=== PATIENT | male | born 1960 | race Caucasian/White ===

== ENCOUNTER 2018-06-28 17:18 | Inpatient (IN) | payer MEDICAID ==
[~2018-06-28] VITALS: Ht 172.7 cm; Wt 80.5 kg
[2018-06-28] MEDS ORDERED: NKM (17:31)
--- NOTE | 2018-06-28 17:32 | NUR ---
ED Nurse Note: Pt came into the ER w/ complaints of left index finger infection x 10 days. Redness and swelling noted at the site. Complaining of 9/10 pain. Non radiating. A + O x4. Ambulatory. Skin warm to touch.
[2018-06-28 17:33] VITALS: BP 125/87
--- NOTE | 2018-06-28 17:36 | NUR ---
ED Nurse Note: Friend's name Jonathan
[2018-06-28] MEDS ORDERED: Vancomycin 1.5gm Premix 275 ML IVPB ONE (17:45)
--- NOTE | 2018-06-28 17:55 | Emergency Room Report ---
History of Present Illness General Chief Complaint: Skin Rash/Abscess Source: Patient (Jones Hendrickson) Present Illness HPI 58-year-old male patient presents the ER complaining of infection of the left finger for the past 10 days. Denies acute injury or accident "that he can remember". Denies fever, reports some nausea, denies vomiting. Denies history of diabetes. Reports may have had chemical exposure on finger however "does not remember". States he is homeless, presented to ER with "an old friend". Denies chest pain or shortness of breath. Reports she is right-hand dominant. States has not followed up with another provider clinic or hospital for treatment and evaluation. (Jones Hendrickson) Allergies: Coded Allergies: No Known Allergies (Unverified , 06/28/18) Patient History Past Medical History: see triage record Reviewed Nursing Documentation: PMH: Agreed; PSxH: Agreed (Jones Hendrickson) Nursing Documentation-PMH Past Medical History: No Stated History (Jones Hendrickson) Review of Systems All Other Systems: negative except mentioned in HPI (Jones Hendrickson) Physical Exam Vital Signs Date Time Temp Pulse Resp B/P (MAP) Pulse Ox O2 Delivery O2 Flow Rate FiO2 06/28/18 17:26 98.4 90 17 127/87 98 Room Air Sp02 EP Interpretation: reviewed, normal General Appearance: well appearing, no apparent distress, alert, GCS 15, non- toxic Head: normocephalic, atraumatic Eyes: bilateral eye normal inspection, bilateral eye PERRL ENT: hearing grossly normal, normal pharynx, no angioedema, normal voice, uvula midline, moist mucus membranes Neck: full range of motion Respiratory: lungs clear, normal breath sounds, no rhonchi, no respiratory distress, no accessory muscle use, no wheezing, speaking full sentences Cardiovascular #1: regular rate, rhythm, no edema Cardiovascular #2: 2+ radial (R), 2+ radial (L) Musculoskeletal: back normal, digits/nails normal, gait/station normal, normal range of motion, swelling, other - cap refill <2seconds, erythema and edema, held in flexion, pus noted, skin peeling, fusiform swelling, tender Neurologic: alert, oriented x3, responsive, motor strength/tone normal, sensory intact Psychiatric: mood/affect normal Skin: no rash (Jones Hendrickson) Medical Decision Making PA Attestation Dr. Hernandez is my supervising Physician whom patient management has been discussed with. (Jones Hendrickson) Medicare Attestation The history of Bhupinder Rothman has been reviewed and management options for him have been examined and discussed by Nela Hernandez. I have personally examined and interviewed the patient. (Nela Hernandez DO) Diagnostic Impression: Primary Impression: Cellulitis of finger of left hand ER Course Pt. presents to the ED c/o left finger infection. Ddx considered but are not limited to rash, cellulitis, abscess, gangrene, flexor tenosynovitis, necrotizing fasciitis Vital signs: are WNL, pt. is afebrile ER COURSE: Provided patient with pain medication and IV abx. CBC shows mildly elevated WBC CMP unremarkable X-ray shows no acute fracture, mild edema, no subcutaneous gas per the preliminary reading. Patient seen and evaluated by Dr. Hernandez, agrees with assessment and treatment plan. Patient be admitted to Dr. Sousa. Discussed patient care with Dr. Roa, general surgeon, who was kind enough to agree to consult on this case. Patient to be admitted for finger cellulitis. ER precautions given. Patient instructed to return to ER immediately for any new or worsening of symptoms including but not limited to increasing SOB, persistent fever, intractable vomiting, calf pain. (Jones Hendrickson) Other X-Ray Diagnostic Results Other X-Ray Diagnostic Results : X-Ray ordered: left hand # of Views/Limited Vs Complete: 3 View Indication: Pain EP Interpretation: Yes PA Xray: Interpretation reviewed, by supervising MD, and agrees with findings. Interpretation: no dislocation, no fractures, other - Soft tissue swelling, no subcutaneous gas Impression: No acute disease PA Scribe Text Davian NOYOLA-C (Jones Hendrickson) Last Vital Signs Date Time Temp Pulse Resp B/P (MAP) Pulse Ox O2 Delivery O2 Flow Rate FiO2 06/28/18 17:33 98.3 66 20 125/87 97 Room Air (Jones Hendrickson) Disposition: ADMITTED INPATIENT Condition: Serious Jones Hendrickson Jun 28, 2018 17:55 Nela Hernandez DO Jun 28, 2018 19:12
[2018-06-28] MEDS ORDERED: Ketorolac 30mg Inj IM ONE (18:00)
[2018-06-28] MEDS ORDERED: cefTRIAXone 1 GM in NS 55 ML IVPB ONE (18:00)
--- NOTE | 2018-06-28 18:05 | NUR ---
ED Nurse Note: Xray at the bedside.
[2018-06-28 18:06] LABS: BASOPHILS % (AUTO) 1.6 % (0.0-2.0); EOSINOPHILS % (AUTO) 2.3 % (0.0-3.0); HEMATOCRIT 45.5 % (42.0-52.0); HEMOGLOBIN 16.2 G/DL (14.2-18.0); LYMPHOCYTES % (AUTO) 32.6 % (20.0-45.0); MEAN CORPUSCULAR VOLUME 91 FL (80-99); MONOCYTES % (AUTO) 6.6 % (1.0-10.0); PLATELET COUNT 535 K/UL (150-450); RED BLOOD COUNT 5.02 M/UL (4.70-6.10); RED CELL DISTRIBUTION WIDTH 11.1 % (11.6-14.8); WHITE BLOOD COUNT 12.2 K/UL (4.8-10.8)
[2018-06-28 18:12] LABS: ANION GAP 7 mmol/L (5-15); BLOOD UREA NITROGEN 18 mg/dL (7-18); CALCIUM 8.9 MG/DL (8.5-10.1); CARBON DIOXIDE 30 MMOL/L (21-32); CHLORIDE 105 MMOL/L (98-107); POTASSIUM 4.6 MMOL/L (3.5-5.1); SODIUM 142 MMOL/L (136-145)
[2018-06-28 18:17] LABS: ALANINE AMINOTRANSFERASE 28 U/L (12-78); ALBUMIN 3.2 G/DL (3.4-5.0); ALBUMIN/GLOBULIN RATIO 0.8 (1.0-2.7); ALKALINE PHOSPHATASE 126 U/L (46-116); ASPARTATE AMINO TRANSFERASE 34 U/L (15-37); BILIRUBIN,TOTAL 0.4 MG/DL (0.2-1.0)
[2018-06-28] MEDS ORDERED: VANCOMYCIN 1.5 GM IVPB ONE (18:31)
--- NOTE | 2018-06-28 18:51 | Diagnostic Imaging Report ---
EXAM: XR Left Hand Complete, 3 or More Views CLINICAL HISTORY: PAIN TECHNIQUE: Frontal, lateral and oblique views of the left hand. COMPARISON: No relevant prior studies available. FINDINGS: Bones/joints: Unremarkable. No acute fracture. No dislocation. Soft tissues: Unremarkable. No radiopaque foreign body. IMPRESSION: Normal left hand x-rays.
--- NOTE | 2018-06-28 19:13 | NUR ---
HAND-OFF: Report given to DOMINIC Diaz.
--- NOTE | 2018-06-28 19:14 | NUR ---
ED Nurse Note: Received report from Femi/DOMINIC. c/o left hand/finger was infected. Waiting for bed to transfer.
[2018-06-28 20:00] VITALS: BP 125/76
--- NOTE | 2018-06-28 20:30 | NUR ---
ED Nurse Note: Provided water, orange juice and sandwitch, Pt feels stable at this time. continue to monitor.
--- NOTE | 2018-06-28 21:41 | NUR ---
NURSE NOTES: Received telephone report from DOMINIC Diaz. Awaiting patient from ED.
--- NOTE | 2018-06-28 21:52 | NUR ---
TRANSFER TO FLOOR: Patient transferred to /S 419 as ordered . Report given to Bridge/RN. Belongings sent with Pt and rechecked with RN. PT is A/O X4. VSS.
--- NOTE | 2018-06-28 22:00 | NUR ---
NURSE NOTES: Received patient from ED with belongings. Belongings checked and verified. Patient A&Ox4, on room air. IV intact, patent, and saline locked. Bed in lowest position with call light in reach. Will continue to monitor and contact MD for orders.
[2018-06-28] MEDS ORDERED: Albuterol/Ipratropium 3ml neb HHN PRN (23:00)
[2018-06-28] MEDS ORDERED: Morphine Sulfate 2mg/ml Inj(IV/IM USE ONLY) IVP PRN (23:00)
[2018-06-28] MEDS ORDERED: Nitroglycerin Subl 0.4mg tab SL PRN (23:00)
[2018-06-28] MEDS ORDERED: Miralax 17gm pkt ORAL PRN (23:00)
[2018-06-29] VITALS: BP 125/76
[2018-06-29] MEDS ORDERED: Vancomycin 1 GM in D5W 275 ML IV SCH (00:30)
[2018-06-29 04:00] VITALS: BP 131/64
[2018-06-29] MEDS: Vancomycin 1.5gm Premix 275 ML IVPB SCH ×2 (05:32→18:18)
[2018-06-29 06:01] LABS: BASOPHILS % (AUTO) 1.1 % (0.0-2.0); EOSINOPHILS % (AUTO) 2.2 % (0.0-3.0); HEMATOCRIT 41.3 % (42.0-52.0); HEMOGLOBIN 14.7 G/DL (14.2-18.0); LYMPHOCYTES % (AUTO) 31.4 % (20.0-45.0); MEAN CORPUSCULAR VOLUME 91 FL (80-99); MONOCYTES % (AUTO) 6.8 % (1.0-10.0); NEUTROPHILS % (AUTO) 58.6 % (45.0-75.0); PLATELET COUNT 460 K/UL (150-450); RED BLOOD COUNT 4.56 M/UL (4.70-6.10); RED CELL DISTRIBUTION WIDTH 11.3 % (11.6-14.8); WHITE BLOOD COUNT 10.7 K/UL (4.8-10.8)
[2018-06-29 06:36] LABS: ALANINE AMINOTRANSFERASE 23 U/L (12-78); ALBUMIN 2.8 G/DL (3.4-5.0); ALBUMIN/GLOBULIN RATIO 0.8 (1.0-2.7); ALKALINE PHOSPHATASE 101 U/L (46-116); ANION GAP 5 mmol/L (5-15); ASPARTATE AMINO TRANSFERASE 11 U/L (15-37); BILIRUBIN,TOTAL 0.2 MG/DL (0.2-1.0); BLOOD UREA NITROGEN 17 mg/dL (7-18); CALCIUM 8.7 MG/DL (8.5-10.1); CARBON DIOXIDE 29 MMOL/L (21-32); CHLORIDE 107 MMOL/L (98-107); CREATININE 1.1 MG/DL (0.55-1.30); POTASSIUM 4.4 MMOL/L (3.5-5.1); SODIUM 141 MMOL/L (136-145)
--- NOTE | 2018-06-29 07:44 | NUR ---
HAND-OFF: Report given to Lucinda Weston RN.
--- NOTE | 2018-06-29 07:45 | NUR ---
NURSE NOTES: Received patient in bed, awake,alert and oriented x4. Not in respiratory/cardiac distress. Patient is in mild pain on his finger but does not want to take pain med @ this time.Patient will let nurse know. IV antibiotic infusing, no s/s of infiltration on IV site. Bed is in lowest position and locked. Call light within reach. Will continue plan of care.
[2018-06-29 08:00] VITALS: BP 129/77
[2018-06-29] MEDS: Cefepime HCl 2 GM in D5W 110 ML IV SCH ×2 (08:58→21:48)
[2018-06-29] MEDS: Heparin 5000 units/ml inj SUBQ SCH ×2 (08:59→21:00)
[2018-06-29 12:00] VITALS: BP 141/83
--- NOTE | 2018-06-29 14:02 | Consultation ---
History of Present Illness General Reason for Hospitalization: Skin Rash/Abscess Present Illness HPI 58M presented to ED c/o worsening left index finger pain for 10 days. Cannot recall any trauma or inciting event but states 10 days ago began to have pain and swelling in left index finger. since worsening. did not care for it and allowed it to worsen. skin began to blister and peel. draining serous fluid. came to ED now for evaluation. surgery called to evaluate and assist with care /management. patient seen, chart reviewed, patient examined. Allergies: Coded Allergies: No Known Allergies (Unverified , 06/28/18) Medication History Scheduled No Known Medications* (NKM - No Known Medications*), 0 ., (Reported) Patient History History Provided By: Patient, Medical Record, PMD Healthcare decision maker Resuscitation status Full Code Advanced Directive on File No Past Medical/Surgical History Past Medical/Surgical History: (1) Cellulitis of finger of left hand Review of Systems Review of Symptoms General ROS: no weight loss or fever Psychological ROS: no depression or mood changes, no memory loss Ophthalmic ROS: no visual changes or eye irritation ENT ROS: no nasal congestion, hearing loss, dizziness Allergy and Immunology ROS: no allergic symptoms or urticaria Hematological and Lymphatic ROS: no swollen glands, unusual bleeding or bruising Endocrine ROS: no polyuria, polydipsia, weight changes, temperature intolerance Respiratory ROS: no cough, shortness of breath, or wheezing Cardiovascular ROS: no chest pain or dyspnea on exertion Gastrointestinal ROS: denies abdominal pain, bright red blood in stool. Musculoskeletal ROS: no myalgias or arthralgias Neurological ROS: no TIA or stroke symptoms Dermatological ROS: no new or changing skin lesions, rashes or pruritis Physical Exam Physical Exam General appearance: alert, cooperative, no distress, appears stated age Head: Normocephalic, without obvious abnormality, atraumatic Eyes: conjunctivae/corneas clear. PERRL, EOM's intact. Fundi benign Throat: Lips, mucosa, and tongue normal. Teeth and gums normal Neck: supple, symmetrical, trachea midline, no adenopathy, thyroid: not enlarged, symmetric, no tenderness/mass/nodules, no carotid bruit and no JVD Lungs: clear to auscultation bilaterally Heart: regular rate and rhythm, S1, S2 normal, no murmur, click, rub or gallop Abdomen: soft, non-tender. Bowel sounds normal. No masses, no organomegaly Extremities: extremities normal, atraumatic, no cyanosis or edema. left index finger cellulitis. no abscess Pulses: 2+ and symmetric Skin: Skin color, texture, turgor normal. No rashes or lesions Neurologic: Grossly normal Last 24 Hour Vital Signs Date Time Temp Pulse Resp B/P (MAP) Pulse Ox O2 Delivery O2 Flow Rate FiO2 06/29/18 12:00 98.4 68 18 141/83 (102) 97 06/29/18 09:00 Room Air 06/29/18 08:00 97.9 80 17 129/77 (94) 97 06/29/18 04:00 98.8 74 17 131/64 (86) 97 06/29/18 00:00 98.5 81 17 125/76 (92) 96 06/28/18 22:41 Room Air 06/28/18 21:52 98.2 67 20 123/82 97 Room Air 06/28/18 20:00 98.4 81 18 125/76 (92) 96 06/28/18 18:46 98.3 06/28/18 17:33 98.3 66 20 125/87 97 Room Air 06/28/18 17:26 98.4 90 17 127/87 98 Room Air Intake and Output 06/28/18 06/29/18 18:59 06:59 Intake Total 1050 ml 950 ml Balance 1050 ml 950 ml Intake Oral 950 ml IV Total 1050 ml Laboratory Tests Test 06/28/18 17:50 06/29/18 04:40 White Blood Count 12.2 K/UL (4.8-10.8) H 10.7 K/UL (4.8-10.8) Red Blood Count 5.02 M/UL (4.70-6.10) 4.56 M/UL (4.70-6.10) L Hemoglobin 16.2 G/DL (14.2-18.0) 14.7 G/DL (14.2-18.0) Hematocrit 45.5 % (42.0-52.0) 41.3 % (42.0-52.0) L Mean Corpuscular Volume 91 FL (80-99) 91 FL (80-99) Mean Corpuscular Hemoglobin 32.2 PG (27.0-31.0) H 32.2 PG (27.0-31.0) H Mean Corpuscular Hemoglobin Concent 35.5 G/DL (32.0-36.0) 35.5 G/DL (32.0-36.0) Red Cell Distribution Width 11.1 % (11.6-14.8) L 11.3 % (11.6-14.8) L Platelet Count 535 K/UL (150-450) H 460 K/UL (150-450) H Mean Platelet Volume 5.1 FL (6.5-10.1) L 5.4 FL (6.5-10.1) L Neutrophils (%) (Auto) 57.0 % (45.0-75.0) 58.6 % (45.0-75.0) Lymphocytes (%) (Auto) 32.6 % (20.0-45.0) 31.4 % (20.0-45.0) Monocytes (%) (Auto) 6.6 % (1.0-10.0) 6.8 % (1.0-10.0) Eosinophils (%) (Auto) 2.3 % (0.0-3.0) 2.2 % (0.0-3.0) Basophils (%) (Auto) 1.6 % (0.0-2.0) 1.1 % (0.0-2.0) Sodium Level 142 MMOL/L (136-145) 141 MMOL/L (136-145) Potassium Level 4.6 MMOL/L (3.5-5.1) 4.4 MMOL/L (3.5-5.1) Chloride Level 105 MMOL/L (98-107) 107 MMOL/L (98-107) Carbon Dioxide Level 30 MMOL/L (21-32) 29 MMOL/L (21-32) Anion Gap 7 mmol/L (5-15) 5 mmol/L (5-15) Blood Urea Nitrogen 18 mg/dL (7-18) 17 mg/dL (7-18) Creatinine 1.0 MG/DL (0.55-1.30) 1.1 MG/DL (0.55-1.30) Estimat Glomerular Filtration Rate > 60 mL/min (>60) > 60 mL/min (>60) Glucose Level 92 MG/DL (74-106) 96 MG/DL (74-106) Calcium Level 8.9 MG/DL (8.5-10.1) 8.7 MG/DL (8.5-10.1) Total Bilirubin 0.4 MG/DL (0.2-1.0) 0.2 MG/DL (0.2-1.0) Aspartate Amino Transf (AST/SGOT) 34 U/L (15-37) 11 U/L (15-37) L Alanine Aminotransferase (ALT/SGPT) 28 U/L (12-78) 23 U/L (12-78) Alkaline Phosphatase 126 U/L (46-116) H 101 U/L (46-116) Total Protein 7.3 G/DL (6.4-8.2) 6.4 G/DL (6.4-8.2) Albumin 3.2 G/DL (3.4-5.0) L 2.8 G/DL (3.4-5.0) L Globulin 4.1 g/dL 3.6 g/dL Albumin/Globulin Ratio 0.8 (1.0-2.7) L 0.8 (1.0-2.7) L Height (Feet): 5 Height (Inches): 8.00 Weight (Pounds): 160 Medications Current Medications Medications (Trade) Dose Ordered Sig/Eliza Route PRN Reason Start Time Stop Time Status Last Admin Dose Admin Acetaminophen (Tylenol) 650 mg Q4H PRN ORAL fever 06/28/18 23:00 07/28/18 22:59 Albuterol/ Ipratropium (Albuterol/ Ipratropium) 3 ml EVERY 4 HOURS PRN HHN Shortness of Breath 06/28/18 23:00 07/03/18 22:59 Cefepime HCl 2 gm/ Dextrose 110 ml @ 220 mls/hr EVERY 12 HOURS IV 06/29/18 09:00 07/06/18 08:59 06/29/18 08:58 Clindamycin HCl/ Dextrose 50 ml @ 100 mls/hr Q8HR IV 06/29/18 14:00 07/06/18 13:59 Dextrose (Dextrose 50%) 25 ml STAT PRN IV Hypoglycemia 06/28/18 23:00 07/28/18 22:59 Dextrose (Dextrose 50%) 50 ml Q30M PRN IV Hypoglycemia 06/28/18 23:00 07/28/18 22:59 Heparin Sodium (Porcine) (Heparin 5000 units/ml) 5,000 units EVERY 12 HOURS SUBQ 06/29/18 09:00 07/29/18 08:59 06/29/18 08:59 Morphine Sulfate (Morphine Sulfate) 2 mg EVERY 4 HOURS PRN IVP Moderate Pain (Pain Scale 4-6) 06/28/18 23:00 07/05/18 22:59 Nitroglycerin (Ntg) 0.4 mg Q5M PRN SL Prn Chest Pain 06/28/18 23:00 07/28/18 22:59 Ondansetron HCl (Zofran) 4 mg Q6H PRN IVP Nausea & Vomiting 06/28/18 23:00 07/28/18 22:59 Polyethylene Glycol (Miralax) 17 gm DAILYPRN PRN ORAL Constipation 06/28/18 23:00 07/28/18 22:59 Temazepam (Restoril) 15 mg HSPRN PRN ORAL Insomnia 06/28/18 23:00 07/05/18 22:59 Vancomycin HCl/ Dextrose 275 ml @ 184 mls/hr Q12H IVPB 06/29/18 06:00 07/04/18 05:59 06/29/18 05:32 Assessment/Plan Problem List: (1) Cellulitis of finger of left hand Assessment & Plan: cellulitis of left index finger. no abscess noted on exam. tender. skin breakdown healing concerning given duration. fortunately no pyogenic. -okay for diet -IV Abx -elevate hand wash hand with water and soap apply xeroform to finger and wrap with kerlix daily okay to shower thank you ICD Codes: L03.012 - Cellulitis of left finger SNOMED: [id number] Vidal Roa Jun 29, 2018 14:02
--- NOTE | 2018-06-29 14:29 | NUR ---
CASE MANAGEMENT: REVIEW 58/M BIBA FROM [facility] CC: SKIN RASH LEFT INDEX FINGER X10 DAYS SI: CELLULITIS T 98.4 HR 90 RR 17 BP 125/76 SAT 97% ROOM AIR WBC 12.2 ALK PHOS 126 IS: VANCO IV X1 TORADOL IM X1 CEFTRIAXONE IV X1 NS IVF BOLUS X1 PATIENT ADMITTED TO MED/SURG UNIT 06/28/2018 DCP: PATIENT REPORTS BEING HOMELESS
[2018-06-29] MEDS: Clindamycin 900mg 50 ML IV SCH ×2 (14:37→22:22)
--- NOTE | 2018-06-29 15:15 | History and Physical Report ---
DATE OF ADMISSION: 06/28/2018 TIME: 7 a.m. CONSULTANTS: 1. Jaime Anthony M.D. 2. Ab Urbina M.D 3. Vidal Roa M.D. CHIEF COMPLAINT: Left index cellulitis. BRIEF HISTORY: This is a 58-year-old homeless man presents to [place] ER last night with left index getting worse, cellulitic, scabbing over x1 week, slight erythema noted as well. The patient diagnosed with the above, admitted to medical floor for further treatment. Currently, calm, in bed. No complaint. No chest pain. No shortness of breath. No nausea, vomiting, or diarrhea. PAST MEDICAL HISTORY: Nothing. PAST SURGICAL HISTORY: Nothing. ALLERGIES: Denies. MEDICATIONS: Include heparin, cefepime, vancomycin, nitroglycerin, temazepam, Zofran, morphine, Tylenol, and albuterol. SOCIAL HISTORY: Positive smoking. No alcohol. No intravenous drug abuse. FAMILY HISTORY: Noncontributory. PHYSICAL EXAMINATION: GENERAL: Calm in bed, oriented x3, no acute distress. VITAL SIGNS: Temperature is 98 degrees, pulse 74, respirations 17, and blood pressure 131/63. CARDIOVASCULAR: No murmur. LUNGS: Distant and clear. ABDOMEN: Bowel sound positive. Nontender. Nondistended. EXTREMITIES: No cyanosis, clubbing, or edema. NEUROLOGIC: The patient moves all extremities, slightly weak. Left index noted to have erythema all over to the knuckle and slightly scabbing from the knuckle area distal digit with the erythema, swelling, slightly tender, decreased range of motion about 30%. LABORATORY DATA: Labs at this time show white count initially of 12, now 10, hemoglobin and hematocrit 14/41, and platelets 460. BMP shows AST 11, albumin 2.8, otherwise BMP is normal. ASSESSMENT: 1. Left index cellulitis. 2. Malnutrition. PLAN: 1. Wound care. 2. Antibiotics per Infectious Disease. 3. CBC and BMP in the morning. 4. Dietary evaluation and PT evaluation. 5. Surgery followup p.r.n. 6. We will continue to follow the patient. David Sousa, D.O. DR: LYNNE JOB#: [id number] CC:
[2018-06-29 16:00] VITALS: BP 111/65
--- NOTE | 2018-06-29 19:30 | NUR ---
HAND-OFF: Report given to
--- NOTE | 2018-06-29 19:30 | NUR ---
NURSE NOTES: Patient awake in bed, alert and oriented x4. AM nurse putting IV at bedside. Instructed the use of call light. Call light and needs and in reach. Bed in lowest position and lock engaged. Will continue to monitor.
[2018-06-29 20:00] VITALS: BP 123/67
[2018-06-30] VITALS: BP 118/63
[2018-06-30 04:00] VITALS: BP 121/70
[2018-06-30] MEDS: Clindamycin 900mg 50 ML IV SCH ×3 (05:26→21:49)
[2018-06-30] MEDS: Vancomycin 1.5gm Premix 275 ML IVPB SCH ×2 (06:18→17:48)
--- NOTE | 2018-06-30 07:08 | NUR ---
HAND-OFF: Report given to DOMINIC Plata.
[2018-06-30 07:39] LABS: BASOPHILS % (AUTO) 0.8 % (0.0-2.0); HEMATOCRIT 42.8 % (42.0-52.0); LYMPHOCYTES % (AUTO) 23.7 % (20.0-45.0); MEAN CORPUSCULAR VOLUME 91 FL (80-99); MONOCYTES % (AUTO) 6.1 % (1.0-10.0); NEUTROPHILS % (AUTO) 67.4 % (45.0-75.0); PLATELET COUNT 452 K/UL (150-450); RED BLOOD COUNT 4.72 M/UL (4.70-6.10); RED CELL DISTRIBUTION WIDTH 10.9 % (11.6-14.8); WHITE BLOOD COUNT 11.5 K/UL (4.8-10.8)
--- NOTE | 2018-06-30 07:43 | NUR ---
NURSE NOTES: Pt awake nonverbal is able, is able to communicate with hand gestures. Will require to be repositioned q2 hours for comfort, and preventive measures 2 to lack of mobility Addendum: 06/30/18 at 0749 by Tayla Calvin RN error in entry wrong pt. Pt received sleeping. Did arise quickly when verse writer introduced self. Current plan care will be followed
[2018-06-30 08:02] LABS: ANION GAP 8 mmol/L (5-15); BLOOD UREA NITROGEN 13 mg/dL (7-18); CARBON DIOXIDE 27 MMOL/L (21-32); CHLORIDE 103 MMOL/L (98-107); POTASSIUM 4.1 MMOL/L (3.5-5.1); SODIUM 138 MMOL/L (136-145)
--- NOTE | 2018-06-30 09:30 | NUR ---
Social Service Note SW attempted to see patient this morning to assess for homelessness. Patient stated he was tired and for SW to come back at a later time. Will follow up.
[2018-06-30] MEDS: Cefepime HCl 2 GM in D5W 110 ML IV SCH ×2 (09:31→21:06)
[2018-06-30] MEDS: Heparin 5000 units/ml inj SUBQ SCH ×2 (09:32→21:00)
--- NOTE | 2018-06-30 10:23 | NUR ---
REHAB MED PT NOTE CONSULT ROMI PORRAS COMPLETED, PATIENT AT BASELINE LEVEL OF FUNCTION, NO SKILLED NEEDS AT THIS TIME. SBA FOR TRANSFERS AND MOBILITY. DC PT ORDER. RECOMMEND RETURN TO PRIOR LOCATION. GARETH ESTRELLA PT DPT Addendum: 06/30/18 at 1023 by GARETH ESTRELLA PT Amended: Links added.
--- NOTE | 2018-06-30 11:47 | Consultation ---
History of Present Illness General Date patient seen: Jun 30, 2018 Chief Complaint: Skin Rash/Abscess Present Illness HPI 58 y/o M with hx of homelessness presents to ED on 06/28 worsening L index finger pain for 10 days. Patient did not recalled any trauma but that he may have had a chemical exposure on finger but doesn't remember. Patient noticed pain, swelling; developed a blister which rupture and was draining serous fluid. Denied f/c, n/v/d, CP, SOB. Allergies: Coded Allergies: No Known Allergies (Unverified , 06/28/18) Medication History Scheduled No Known Medications* (NKM - No Known Medications*), 0 ., (Reported) Patient History Healthcare decision maker Resuscitation status Full Code Advanced Directive on File No Patient History Narrative Pmhx: as above Shx: reviewed Fhx: non contributory Review of Systems All Other Systems: negative except mentioned in HPI Physical Exam Physical Exam Narrative General appearance: alert, cooperative, no distress, appears stated age Head: Normocephalic, without obvious abnormality, atraumatic Eyes: conjunctivae/corneas clear. PERRL, EOM's intact. Fundi benign Throat: Lips, mucosa, and tongue normal. Teeth and gums normal Neck: supple, symmetrical, trachea midline, no adenopathy, thyroid: not enlarged, symmetric, no tenderness/mass/nodules, no carotid bruit and no JVD Lungs: clear to auscultation bilaterally Heart: regular rate and rhythm, S1, S2 normal, no murmur, click, rub or gallop Abdomen: soft, non-tender. Bowel sounds normal. No masses, no organomegaly Extremities: extremities normal, atraumatic, no cyanosis or edema. left index finger cellulitis. no abscess Pulses: 2+ and symmetric Skin: Skin color, texture, turgor normal. No rashes or lesions Neurologic: Grossly normal Last 24 Hour Vital Signs Date Time Temp Pulse Resp B/P (MAP) Pulse Ox O2 Delivery O2 Flow Rate FiO2 06/30/18 10:06 101 20 Room Air 21 06/30/18 09:00 Room Air 06/30/18 04:00 98.3 73 18 121/70 (87) 96 06/30/18 00:00 98.2 64 18 118/63 (81) 95 06/29/18 21:00 Room Air 06/29/18 20:14 72 18 Room Air 21 06/29/18 20:00 98.2 72 18 123/67 (85) 97 06/29/18 16:00 98.6 70 17 111/65 (80) 97 06/29/18 12:00 98.4 68 18 141/83 (102) 97 Intake and Output 06/29/18 06/30/18 19:00 07:00 Intake Total 880 ml 485 ml Balance 880 ml 485 ml Intake Oral 720 ml IV Total 160 ml 485 ml # Voids 2 Laboratory Tests Test 06/30/18 06:10 White Blood Count 11.5 K/UL (4.8-10.8) H Red Blood Count 4.72 M/UL (4.70-6.10) Hemoglobin 15.0 G/DL (14.2-18.0) Hematocrit 42.8 % (42.0-52.0) Mean Corpuscular Volume 91 FL (80-99) Mean Corpuscular Hemoglobin 31.8 PG (27.0-31.0) H Mean Corpuscular Hemoglobin Concent 35.1 G/DL (32.0-36.0) Red Cell Distribution Width 10.9 % (11.6-14.8) L Platelet Count 452 K/UL (150-450) H Mean Platelet Volume 5.2 FL (6.5-10.1) L Neutrophils (%) (Auto) 67.4 % (45.0-75.0) Lymphocytes (%) (Auto) 23.7 % (20.0-45.0) Monocytes (%) (Auto) 6.1 % (1.0-10.0) Eosinophils (%) (Auto) 2.0 % (0.0-3.0) Basophils (%) (Auto) 0.8 % (0.0-2.0) Sodium Level 138 MMOL/L (136-145) Potassium Level 4.1 MMOL/L (3.5-5.1) Chloride Level 103 MMOL/L (98-107) Carbon Dioxide Level 27 MMOL/L (21-32) Anion Gap 8 mmol/L (5-15) Blood Urea Nitrogen 13 mg/dL (7-18) Creatinine 1.0 MG/DL (0.55-1.30) Estimat Glomerular Filtration Rate > 60 mL/min (>60) Glucose Level 87 MG/DL (74-106) Calcium Level 9.0 MG/DL (8.5-10.1) Height (Feet): 5 Height (Inches): 8.00 Weight (Pounds): 160 Medications Current Medications Medications (Trade) Dose Ordered Sig/Eliza Route PRN Reason Start Time Stop Time Status Last Admin Dose Admin Acetaminophen (Tylenol) 650 mg Q4H PRN ORAL fever 06/28/18 23:00 07/28/18 22:59 Albuterol/ Ipratropium (Albuterol/ Ipratropium) 3 ml EVERY 4 HOURS PRN HHN Shortness of Breath 06/28/18 23:00 07/03/18 22:59 Cefepime HCl 2 gm/ Dextrose 110 ml @ 220 mls/hr EVERY 12 HOURS IV 06/29/18 09:00 07/06/18 08:59 06/30/18 09:31 Clindamycin HCl/ Dextrose 50 ml @ 100 mls/hr Q8HR IV 06/29/18 14:00 07/06/18 13:59 06/30/18 05:26 Dextrose (Dextrose 50%) 25 ml STAT PRN IV Hypoglycemia 06/28/18 23:00 07/28/18 22:59 Dextrose (Dextrose 50%) 50 ml Q30M PRN IV Hypoglycemia 06/28/18 23:00 07/28/18 22:59 Heparin Sodium (Porcine) (Heparin 5000 units/ml) 5,000 units EVERY 12 HOURS SUBQ 06/29/18 09:00 07/29/18 08:59 06/29/18 08:59 Morphine Sulfate (Morphine Sulfate) 2 mg EVERY 4 HOURS PRN IVP Moderate Pain (Pain Scale 4-6) 06/28/18 23:00 07/05/18 22:59 Nitroglycerin (Ntg) 0.4 mg Q5M PRN SL Prn Chest Pain 06/28/18 23:00 07/28/18 22:59 Ondansetron HCl (Zofran) 4 mg Q6H PRN IVP Nausea & Vomiting 06/28/18 23:00 07/28/18 22:59 Polyethylene Glycol (Miralax) 17 gm DAILYPRN PRN ORAL Constipation 06/28/18 23:00 07/28/18 22:59 Temazepam (Restoril) 15 mg HSPRN PRN ORAL Insomnia 06/28/18 23:00 07/05/18 22:59 Vancomycin HCl/ Dextrose 275 ml @ 184 mls/hr Q12H IVPB 06/29/18 06:00 07/04/18 05:59 06/30/18 06:18 Assessment/Plan Assessment/Plan Abx: IV Vancomycin 06/28- Cefepime 06/29- Clindamycin 06/29- Ceftriaxone x1 06/28 Assessment: L index finger cellulitis-? chemical exposure -L hand xray: Normal left hand x-rays. Afebrile Leukocytosis Homelessness Plan: -Continue empiric IV vancomycin #3 , Cefepime #2 and Clindamycin #2 -f/u cx -Monitor CBC/CMP, temperatures -wound care -sx f/u Thank you for this consultation. Will continue to follow along with you. Discussed with Crystal Durand M.D. Jun 30, 2018 11:47
[2018-06-30 12:00] VITALS: BP 119/74
--- NOTE | 2018-06-30 13:53 | General Progress Note ---
Assessment/Plan Problem List: (1) Cellulitis of finger of left hand ICD Codes: L03.012 - Cellulitis of left finger SNOMED: [id number] Status: unchanged Assessment/Plan wound care abx pain control cbc bmp in am dc plan snf Subjective Constitutional: Reports: weakness Allergies: Coded Allergies: No Known Allergies (Unverified , 06/28/18) All Systems: reviewed and negative except above Subjective calm in bed Objective Last 24 Hour Vital Signs Date Time Temp Pulse Resp B/P (MAP) Pulse Ox O2 Delivery O2 Flow Rate FiO2 06/30/18 12:00 98.6 76 19 119/74 (89) 97 06/30/18 10:06 101 20 Room Air 21 06/30/18 09:00 Room Air 06/30/18 04:00 98.3 73 18 121/70 (87) 96 06/30/18 00:00 98.2 64 18 118/63 (81) 95 06/29/18 21:00 Room Air 06/29/18 20:14 72 18 Room Air 21 06/29/18 20:00 98.2 72 18 123/67 (85) 97 06/29/18 16:00 98.6 70 17 111/65 (80) 97 Intake and Output 06/29/18 06/30/18 18:59 06:59 Intake Total 880 ml 485 ml Balance 880 ml 485 ml Intake Oral 720 ml IV Total 160 ml 485 ml # Voids 2 Laboratory Tests 06/30/18 06:10: White Blood Count 11.5H, Red Blood Count 4.72, Hemoglobin 15.0, Hematocrit 42.8 , Mean Corpuscular Volume 91, Mean Corpuscular Hemoglobin 31.8H, Mean Corpuscular Hemoglobin Concent 35.1, Red Cell Distribution Width 10.9L, Platelet Count 452H, Mean Platelet Volume 5.2L, Neutrophils (%) (Auto) 67.4, Lymphocytes (%) (Auto) 23.7, Monocytes (%) (Auto) 6.1, Eosinophils (%) (Auto) 2.0, Basophils (%) (Auto) 0.8, Sodium Level 138, Potassium Level 4.1, Chloride Level 103, Carbon Dioxide Level 27, Anion Gap 8, Blood Urea Nitrogen 13, Creatinine 1.0, Estimat Glomerular Filtration Rate > 60, Glucose Level 87, Calcium Level 9.0 Height (Feet): 5 Height (Inches): 8.00 Weight (Pounds): 160 General Appearance: lethargic EENT: normal ENT inspection Neck: normal alignment Cardiovascular: normal peripheral pulses, normal rate, regular rhythm Respiratory/Chest: chest wall non-tender, lungs clear, normal breath sounds Abdomen: normal bowel sounds, non tender, soft Extremities: normal inspection Edema: no edema noted Arm (L), no edema noted Arm (R), no edema noted Leg (L), no edema noted Leg (R), no edema noted Pedal (L), no edema noted Pedal (R), no edema noted Generalized Neurologic: responsive, motor weakness Skin: normal pigmentation, warm/dry Objective left index red, swollen w scabs David Sousa DO Jun 30, 2018 13:53
--- NOTE | 2018-06-30 15:08 | Surgery Progress Note ---
Surgery Progress Note Subjective Symptoms: improved Additional Comments states pain improving. edema improving. able to move finger better today Objective Last 24 Hour Vital Signs Date Time Temp Pulse Resp B/P (MAP) Pulse Ox O2 Delivery O2 Flow Rate FiO2 06/30/18 12:00 98.6 76 19 119/74 (89) 97 06/30/18 10:06 101 20 Room Air 21 06/30/18 09:00 Room Air 06/30/18 04:00 98.3 73 18 121/70 (87) 96 06/30/18 00:00 98.2 64 18 118/63 (81) 95 06/29/18 21:00 Room Air 06/29/18 20:14 72 18 Room Air 21 06/29/18 20:00 98.2 72 18 123/67 (85) 97 06/29/18 16:00 98.6 70 17 111/65 (80) 97 I&O Intake and Output 06/29/18 06/30/18 18:59 06:59 Intake Total 880 ml 485 ml Balance 880 ml 485 ml Intake Oral 720 ml IV Total 160 ml 485 ml # Voids 2 Dressing: dry Wound: clean, other Drains: none Cardiovascular: RSR Respiratory: clear Abdomen: soft, flat, non-tender, non-distended Extremities: edema, tenderness Laboratory Tests Test 06/30/18 06:10 White Blood Count 11.5 K/UL (4.8-10.8) H Red Blood Count 4.72 M/UL (4.70-6.10) Hemoglobin 15.0 G/DL (14.2-18.0) Hematocrit 42.8 % (42.0-52.0) Mean Corpuscular Volume 91 FL (80-99) Mean Corpuscular Hemoglobin 31.8 PG (27.0-31.0) H Mean Corpuscular Hemoglobin Concent 35.1 G/DL (32.0-36.0) Red Cell Distribution Width 10.9 % (11.6-14.8) L Platelet Count 452 K/UL (150-450) H Mean Platelet Volume 5.2 FL (6.5-10.1) L Neutrophils (%) (Auto) 67.4 % (45.0-75.0) Lymphocytes (%) (Auto) 23.7 % (20.0-45.0) Monocytes (%) (Auto) 6.1 % (1.0-10.0) Eosinophils (%) (Auto) 2.0 % (0.0-3.0) Basophils (%) (Auto) 0.8 % (0.0-2.0) Sodium Level 138 MMOL/L (136-145) Potassium Level 4.1 MMOL/L (3.5-5.1) Chloride Level 103 MMOL/L (98-107) Carbon Dioxide Level 27 MMOL/L (21-32) Anion Gap 8 mmol/L (5-15) Blood Urea Nitrogen 13 mg/dL (7-18) Creatinine 1.0 MG/DL (0.55-1.30) Estimat Glomerular Filtration Rate > 60 mL/min (>60) Glucose Level 87 MG/DL (74-106) Calcium Level 9.0 MG/DL (8.5-10.1) Plan Problems: (1) Cellulitis of finger of left hand Assessment & Plan: cellulitis of left index finger. no abscess noted on exam. tender. skin breakdown healing concerning given duration. fortunately no pyogenic. better passive movement today in finger cellulitis improving -okay for diet -IV Abx -elevate hand wash hand with water and soap apply xeroform to finger and wrap with kerlix daily okay to shower thank you Vidal Roa Jun 30, 2018 15:08
[2018-06-30 16:00] VITALS: BP 122/79
--- NOTE | 2018-06-30 16:51 | NUR ---
NURSE NOTES: Pt discharged to [facility] report given, [place] No. Pt niece phoned Meghana Roberson made aware of discharge. IV acces removed. Belongings given, including blue blanket. Pt dentures are in his mouth. condition is stable. No signs of distress, or complaints of pain. Pt treated for sepsis, as well as work for investigation of GI bleed. , which is complete
--- NOTE | 2018-06-30 17:55 | NUR ---
CASE MANAGEMENT: REVIEW 06/30/2018 SI: CELLULITIS T 98.6 HR 76 RR 19 B/P 119/74 SATS 97% ON RA WBC 11.5 IS:CEFEPIME IV Q12H VANCO IV Q12H CLINDAMYCIN IV Q8H MED/SURG STATUS DCP: PATIENT REPORTS BEING HOMELESS
--- NOTE | 2018-06-30 19:30 | NUR ---
NURSE NOTES: Patient asleep in bed, no signs of pain and not in acute respiratory distress. Instructed the use of call light. Call light and needs in reach. Bed in lowest position and lock engaged. Will continue to monitor.
--- NOTE | 2018-06-30 20:16 | NUR ---
NURSE NOTES: Pt able to verbalize known needs. Ambulatory. No possible side effects of antibiotic noted or reported. Skin remains clear 2 to possible dermatological side effect from plan of acre. Bandage to index finger changed. Mild odor. No drainage noted. Current paln of acre will be followed
--- NOTE | 2018-06-30 20:21 | NUR ---
HAND-OFF: Report given to Marry ALFARO.
[2018-07-01] VITALS: BP 107/73
[2018-07-01 04:00] VITALS: BP 111/69
[2018-07-01] MEDS: Clindamycin 900mg 50 ML IV SCH ×3 (05:04→21:50)
[2018-07-01] MEDS: Vancomycin 1.5gm Premix 275 ML IVPB SCH ×2 (05:43→18:01)
--- NOTE | 2018-07-01 07:25 | NUR ---
NURSE NOTES: Received patient in bed. patient awake, alert, oriented x4, no sign of distress, HL patent .on fall precaution observed and maintained, Bed in lowest position, locked, alarms on. Call light in reach. shamika kaur
[2018-07-01 07:27] LABS: ANION GAP 7 mmol/L (5-15); BLOOD UREA NITROGEN 14 mg/dL (7-18); CALCIUM 9.2 MG/DL (8.5-10.1); CARBON DIOXIDE 28 MMOL/L (21-32); CHLORIDE 103 MMOL/L (98-107); POTASSIUM 4.2 MMOL/L (3.5-5.1); SODIUM 138 MMOL/L (136-145)
[2018-07-01 07:32] LABS: BASOPHILS % (AUTO) 0.7 % (0.0-2.0); EOSINOPHILS % (AUTO) 1.8 % (0.0-3.0); HEMATOCRIT 43.2 % (42.0-52.0); HEMOGLOBIN 15.1 G/DL (14.2-18.0); LYMPHOCYTES % (AUTO) 28.5 % (20.0-45.0); MEAN CORPUSCULAR VOLUME 91 FL (80-99); MONOCYTES % (AUTO) 6.8 % (1.0-10.0); NEUTROPHILS % (AUTO) 62.2 % (45.0-75.0); PLATELET COUNT 422 K/UL (150-450); RED BLOOD COUNT 4.75 M/UL (4.70-6.10); RED CELL DISTRIBUTION WIDTH 10.9 % (11.6-14.8); WHITE BLOOD COUNT 9.8 K/UL (4.8-10.8)
--- NOTE | 2018-07-01 07:35 | NUR ---
HAND-OFF: Report given to DOMINIC Curry.
[2018-07-01] MEDS: Cefepime HCl 2 GM in D5W 110 ML IV SCH ×2 (08:20→21:06)
[2018-07-01] MEDS: Heparin 5000 units/ml inj SUBQ SCH ×2 (08:21→21:08)
[2018-07-01 09:00] VITALS: BP 110/71
--- NOTE | 2018-07-01 11:20 | Infectious Diseases Prog Note ---
Assessment/Plan Assessment/Plan Abx: IV Vancomycin 06/28- Cefepime 06/29- Clindamycin 06/29- Ceftriaxone x1 06/28 Assessment: L index finger cellulitis-? chemical exposure -L hand xray: Normal left hand x-rays. Afebrile Leukocytosis, SP -Bcx NTD Homelessness Plan: -Continue empiric IV vancomycin #4 , Cefepime #3 and Clindamycin #3 -06/28 SP CEftriaxone x1 -f/u cx -Monitor CBC/CMP, temperatures -wound care -sx f/u Thank you for this consultation. Will continue to follow along with you. Discussed with RN. Subjective Allergies: Coded Allergies: No Known Allergies (Unverified , 06/28/18) Subjective afebrile leukocytosis resolved Bcx NTD Objective Vital Signs Last 24 Hour Vital Signs Date Time Temp Pulse Resp B/P (MAP) Pulse Ox O2 Delivery O2 Flow Rate FiO2 07/01/18 09:00 97.9 76 19 110/71 (84) 98 07/01/18 08:10 Room Air 07/01/18 07:08 82 18 Room Air 21 07/01/18 04:00 98.5 70 18 111/69 (83) 98 07/01/18 00:00 97.2 70 18 107/73 (84) 96 06/30/18 21:43 90 20 Room Air 21 06/30/18 21:00 Room Air 06/30/18 16:00 98.0 74 20 122/79 (93) 97 06/30/18 12:00 98.6 76 19 119/74 (89) 97 Height (Feet): 5 Height (Inches): 8.00 Weight (Pounds): 160 Objective General appearance: alert, cooperative, no distress, appears stated age Head: Normocephalic, without obvious abnormality, atraumatic Eyes: conjunctivae/corneas clear. PERRL, EOM's intact. Fundi benign Throat: Lips, mucosa, and tongue normal. Teeth and gums normal Neck: supple, symmetrical, trachea midline, no adenopathy, thyroid: not enlarged, symmetric, no tenderness/mass/nodules, no carotid bruit and no JVD Lungs: clear to auscultation bilaterally Heart: regular rate and rhythm, S1, S2 normal, no murmur, click, rub or gallop Abdomen: soft, non-tender. Bowel sounds normal. No masses, no organomegaly Extremities: extremities normal, atraumatic, no cyanosis or edema. left index finger cellulitis. no abscess Pulses: 2+ and symmetric Skin: Skin color, texture, turgor normal. No rashes or lesions Neurologic: Grossly normal Microbiology Date/Time Source Procedure Growth Status 06/28/18 17:50 Blood Blood Culture - Preliminary NO GROWTH AFTER 48 HOURS Resulted 06/28/18 17:35 Blood Blood Culture - Preliminary NO GROWTH AFTER 48 HOURS Resulted 06/28/18 21:50 Nasal Nares MRSA Culture - Final Staphylococcus Aureus - Mrsa Complete 06/28/18 21:50 Rectum VRE Culture - Final NO VANCOMYCIN RESISTANT ENTEROCOCCUS ... Complete Laboratory Tests Test 06/30/18 17:30 07/01/18 05:25 Vancomycin Level Trough 12.3 ug/mL (5.0-12.0) H White Blood Count 9.8 K/UL (4.8-10.8) Red Blood Count 4.75 M/UL (4.70-6.10) Hemoglobin 15.1 G/DL (14.2-18.0) Hematocrit 43.2 % (42.0-52.0) Mean Corpuscular Volume 91 FL (80-99) Mean Corpuscular Hemoglobin 31.7 PG (27.0-31.0) H Mean Corpuscular Hemoglobin Concent 34.8 G/DL (32.0-36.0) Red Cell Distribution Width 10.9 % (11.6-14.8) L Platelet Count 422 K/UL (150-450) Mean Platelet Volume 5.2 FL (6.5-10.1) L Neutrophils (%) (Auto) 62.2 % (45.0-75.0) Lymphocytes (%) (Auto) 28.5 % (20.0-45.0) Monocytes (%) (Auto) 6.8 % (1.0-10.0) Eosinophils (%) (Auto) 1.8 % (0.0-3.0) Basophils (%) (Auto) 0.7 % (0.0-2.0) Sodium Level 138 MMOL/L (136-145) Potassium Level 4.2 MMOL/L (3.5-5.1) Chloride Level 103 MMOL/L (98-107) Carbon Dioxide Level 28 MMOL/L (21-32) Anion Gap 7 mmol/L (5-15) Blood Urea Nitrogen 14 mg/dL (7-18) Creatinine 1.0 MG/DL (0.55-1.30) Estimat Glomerular Filtration Rate > 60 mL/min (>60) Glucose Level 93 MG/DL (74-106) Calcium Level 9.2 MG/DL (8.5-10.1) Current Medications Medications (Trade) Dose Ordered Sig/Eliza Route PRN Reason Start Time Stop Time Status Last Admin Dose Admin Acetaminophen (Tylenol) 650 mg Q4H PRN ORAL fever 06/28/18 23:00 07/28/18 22:59 Albuterol/ Ipratropium (Albuterol/ Ipratropium) 3 ml EVERY 4 HOURS PRN HHN Shortness of Breath 06/28/18 23:00 07/03/18 22:59 Cefepime HCl 2 gm/ Dextrose 110 ml @ 220 mls/hr EVERY 12 HOURS IV 06/29/18 09:00 07/06/18 08:59 07/01/18 08:20 Clindamycin HCl/ Dextrose 50 ml @ 100 mls/hr Q8HR IV 06/29/18 14:00 07/06/18 13:59 07/01/18 05:04 Dextrose (Dextrose 50%) 25 ml STAT PRN IV Hypoglycemia 06/28/18 23:00 07/28/18 22:59 Dextrose (Dextrose 50%) 50 ml Q30M PRN IV Hypoglycemia 06/28/18 23:00 07/28/18 22:59 Heparin Sodium (Porcine) (Heparin 5000 units/ml) 5,000 units EVERY 12 HOURS SUBQ 06/29/18 09:00 07/29/18 08:59 07/01/18 08:21 Morphine Sulfate (Morphine Sulfate) 2 mg EVERY 4 HOURS PRN IVP Moderate Pain (Pain Scale 4-6) 06/28/18 23:00 07/05/18 22:59 Nitroglycerin (Ntg) 0.4 mg Q5M PRN SL Prn Chest Pain 06/28/18 23:00 07/28/18 22:59 Ondansetron HCl (Zofran) 4 mg Q6H PRN IVP Nausea & Vomiting 06/28/18 23:00 07/28/18 22:59 Polyethylene Glycol (Miralax) 17 gm DAILYPRN PRN ORAL Constipation 06/28/18 23:00 07/28/18 22:59 Temazepam (Restoril) 15 mg HSPRN PRN ORAL Insomnia 06/28/18 23:00 07/05/18 22:59 Vancomycin HCl (Vanco rx to dose) 1 ea DAILY PRN MISC . 06/30/18 16:30 07/30/18 16:29 Vancomycin HCl/ Dextrose 275 ml @ 184 mls/hr Q12H IVPB 06/29/18 06:00 07/04/18 05:59 07/01/18 05:43 Crystal Yao M.D. Jul 01, 2018 11:19
[2018-07-01 12:00] VITALS: BP 117/86
--- NOTE | 2018-07-01 13:03 | General Progress Note ---
Assessment/Plan Problem List: (1) Cellulitis of finger of left hand ICD Codes: L03.012 - Cellulitis of left finger SNOMED: [id number] Status: unchanged Assessment/Plan wound care abx pain control cbc bmp in am dc to snf if clear Subjective Constitutional: Reports: weakness Allergies: Coded Allergies: No Known Allergies (Unverified , 06/28/18) All Systems: reviewed and negative except above Subjective calm in bed Objective Last 24 Hour Vital Signs Date Time Temp Pulse Resp B/P (MAP) Pulse Ox O2 Delivery O2 Flow Rate FiO2 07/01/18 12:00 98.3 79 19 117/86 (96) 98 07/01/18 09:00 97.9 76 19 110/71 (84) 98 07/01/18 08:10 Room Air 07/01/18 07:08 82 18 Room Air 21 07/01/18 04:00 98.5 70 18 111/69 (83) 98 07/01/18 00:00 97.2 70 18 107/73 (84) 96 06/30/18 21:43 90 20 Room Air 21 06/30/18 21:00 Room Air 06/30/18 16:00 98.0 74 20 122/79 (93) 97 Intake and Output 06/30/18 07/01/18 19:00 07:00 Intake Total 1694 ml 985 ml Balance 1694 ml 985 ml Intake Oral 1240 ml 500 ml IV Total 454 ml 485 ml # Voids 8 3 Laboratory Tests 06/30/18 17:30: Vancomycin Level Trough 12.3H 07/01/18 05:25: White Blood Count 9.8, Red Blood Count 4.75, Hemoglobin 15.1, Hematocrit 43.2, Mean Corpuscular Volume 91, Mean Corpuscular Hemoglobin 31.7H, Mean Corpuscular Hemoglobin Concent 34.8, Red Cell Distribution Width 10.9L, Platelet Count 422, Mean Platelet Volume 5.2L, Neutrophils (%) (Auto) 62.2, Lymphocytes (%) (Auto) 28.5, Monocytes (%) (Auto) 6.8, Eosinophils (%) (Auto) 1.8, Basophils (%) (Auto ) 0.7, Sodium Level 138, Potassium Level 4.2, Chloride Level 103, Carbon Dioxide Level 28, Anion Gap 7, Blood Urea Nitrogen 14, Creatinine 1.0, Estimat Glomerular Filtration Rate > 60, Glucose Level 93, Calcium Level 9.2 Height (Feet): 5 Height (Inches): 8.00 Weight (Pounds): 160 General Appearance: alert EENT: normal ENT inspection Neck: normal alignment Cardiovascular: normal peripheral pulses, normal rate, regular rhythm Respiratory/Chest: chest wall non-tender, lungs clear, normal breath sounds Abdomen: normal bowel sounds, non tender, soft Extremities: normal inspection Edema: no edema noted Arm (L), no edema noted Arm (R), no edema noted Leg (L), no edema noted Leg (R), no edema noted Pedal (L), no edema noted Pedal (R), no edema noted Generalized Objective left index dressing c&d David Sousa DO Jul 01, 2018 13:03
--- NOTE | 2018-07-01 14:02 | Surgery Progress Note ---
Surgery Progress Note Subjective Additional Comments cellulitis significantly improved. almost has full range of motion in finger. pain improved. Objective Last 24 Hour Vital Signs Date Time Temp Pulse Resp B/P (MAP) Pulse Ox O2 Delivery O2 Flow Rate FiO2 07/01/18 12:00 98.3 79 19 117/86 (96) 98 07/01/18 09:00 97.9 76 19 110/71 (84) 98 07/01/18 08:10 Room Air 07/01/18 07:08 82 18 Room Air 21 07/01/18 04:00 98.5 70 18 111/69 (83) 98 07/01/18 00:00 97.2 70 18 107/73 (84) 96 06/30/18 21:43 90 20 Room Air 21 06/30/18 21:00 Room Air 06/30/18 16:00 98.0 74 20 122/79 (93) 97 I&O Intake and Output 06/30/18 07/01/18 19:00 07:00 Intake Total 1694 ml 985 ml Balance 1694 ml 985 ml Intake Oral 1240 ml 500 ml IV Total 454 ml 485 ml # Voids 8 3 Dressing: dry Wound: clean Drains: other Cardiovascular: RSR Respiratory: clear Abdomen: soft, non-tender, non-distended Extremities: edema, no tenderness, no cyanosis Laboratory Tests Test 06/30/18 17:30 07/01/18 05:25 Vancomycin Level Trough 12.3 ug/mL (5.0-12.0) H White Blood Count 9.8 K/UL (4.8-10.8) Red Blood Count 4.75 M/UL (4.70-6.10) Hemoglobin 15.1 G/DL (14.2-18.0) Hematocrit 43.2 % (42.0-52.0) Mean Corpuscular Volume 91 FL (80-99) Mean Corpuscular Hemoglobin 31.7 PG (27.0-31.0) H Mean Corpuscular Hemoglobin Concent 34.8 G/DL (32.0-36.0) Red Cell Distribution Width 10.9 % (11.6-14.8) L Platelet Count 422 K/UL (150-450) Mean Platelet Volume 5.2 FL (6.5-10.1) L Neutrophils (%) (Auto) 62.2 % (45.0-75.0) Lymphocytes (%) (Auto) 28.5 % (20.0-45.0) Monocytes (%) (Auto) 6.8 % (1.0-10.0) Eosinophils (%) (Auto) 1.8 % (0.0-3.0) Basophils (%) (Auto) 0.7 % (0.0-2.0) Sodium Level 138 MMOL/L (136-145) Potassium Level 4.2 MMOL/L (3.5-5.1) Chloride Level 103 MMOL/L (98-107) Carbon Dioxide Level 28 MMOL/L (21-32) Anion Gap 7 mmol/L (5-15) Blood Urea Nitrogen 14 mg/dL (7-18) Creatinine 1.0 MG/DL (0.55-1.30) Estimat Glomerular Filtration Rate > 60 mL/min (>60) Glucose Level 93 MG/DL (74-106) Calcium Level 9.2 MG/DL (8.5-10.1) Plan Problems: (1) Cellulitis of finger of left hand Assessment & Plan: cellulitis of left index finger. no abscess noted on exam. tender. skin breakdown healing concerning given duration. fortunately no pyogenic. better passive movement in finger cellulitis improving overall much improved -okay for diet -IV Abx -elevate hand wash hand with water and soap apply xeroform to finger and wrap with kerlix daily okay to shower transition to oral abx d/c planning thank you Vidal Roa Jul 01, 2018 14:02
--- NOTE | 2018-07-01 14:22 | NUR ---
Social Service Note SW met followed up with patient to assess for homelessness. Patient is alert, oriented and verbally responsive. Patient states he has been homeless since 2011. Patient unable to provide contributing factors what led to his homelessness. Patient states he currently receives food stamps only because he received the lotted time for GR. Patient states he is aware of his [employer] office to follow up when able to reapply for GR perales aide. 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 Patient doesn't utilize shelters and typically states in a tent or a friend's house Jonathan Merida on occasion. Patient screen for [facility] by [facility] and [facility] application completed. Patient currently with [facility]. Patient's current insurance will not accepted at SNF for placement. SW discussed urgent care clinics in which patient will be able to follow up for medical care. Since patient would be a new patient follow up appointment cannot be scheduled prior to discharge. Patient will be required to go to a clinic and be screen during walk-in appointment times. Urgent Care Service providers resource list will be provided to patient with discharge instructions. Nursing to provide dressing change teaching and supplies. Message left for Dr. Yao and Dr. Sousa regarding prescriptions to be filled at [facility]. Patient not receptive to [facility] [place] [facility] upon discharge. Patient indicating having a place to go upon discharge and declined to provide discharge location. Patient denied mental health disorder. Patient will require transportation to patient's preferred location upon discharge. Awaiting return message for MD's. Homeless patient discharge planning checklist and resources placed in patient's charge. Patient's emergency contact is Jonathan Merida [phone]. Patient declined SW contacting friend.
[2018-07-01] MEDS ORDERED: BACTRIM DOUBLE S1 E1 ORAL (14:55)
[2018-07-01] MEDS ORDERED: AUGMENTIN 875-1 EAC1 ORAL (14:55)
--- NOTE | 2018-07-01 14:57 | Pulmonology Progress Note ---
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, will dc with bactrim and augmentin Subjective ROS Limited/Unobtainable: No Constitutional: Reports: no symptoms HEENT: Repors: no symptoms Allergies: Coded Allergies: No Known Allergies (Unverified , 06/28/18) Objective Last 24 Hour Vital Signs Date Time Temp Pulse Resp B/P (MAP) Pulse Ox O2 Delivery O2 Flow Rate FiO2 07/01/18 12:00 98.3 79 19 117/86 (96) 98 07/01/18 09:00 97.9 76 19 110/71 (84) 98 07/01/18 08:10 Room Air 07/01/18 07:08 82 18 Room Air 21 07/01/18 04:00 98.5 70 18 111/69 (83) 98 07/01/18 00:00 97.2 70 18 107/73 (84) 96 06/30/18 21:43 90 20 Room Air 21 06/30/18 21:00 Room Air 06/30/18 16:00 98.0 74 20 122/79 (93) 97 Intake and Output 06/30/18 07/01/18 18:59 06:59 Intake Total 1694 ml 985 ml Balance 1694 ml 985 ml Intake Oral 1240 ml 500 ml IV Total 454 ml 485 ml # Voids 8 3 General Appearance: WD/WN HEENT: normocephalic, anicteric Respiratory/Chest: chest wall non-tender, lungs clear Cardiovascular: normal peripheral pulses, regular rhythm Abdomen: normal bowel sounds, soft, non tender Genitourinary: normal external genitalia Extremities: no cyanosis, no clubbing Skin: no rash Microbiology Date/Time Source Procedure Growth Status 06/28/18 17:50 Blood Blood Culture - Preliminary NO GROWTH AFTER 48 HOURS Resulted 06/28/18 17:35 Blood Blood Culture - Preliminary NO GROWTH AFTER 48 HOURS Resulted 06/28/18 21:50 Nasal Nares MRSA Culture - Final Staphylococcus Aureus - Mrsa Complete 06/28/18 21:50 Rectum VRE Culture - Final NO VANCOMYCIN RESISTANT ENTEROCOCCUS ... Complete Laboratory Tests 06/30/18 17:30: Vancomycin Level Trough 12.3H 07/01/18 05:25: White Blood Count 9.8, Red Blood Count 4.75, Hemoglobin 15.1, Hematocrit 43.2, Mean Corpuscular Volume 91, Mean Corpuscular Hemoglobin 31.7H, Mean Corpuscular Hemoglobin Concent 34.8, Red Cell Distribution Width 10.9L, Platelet Count 422, Mean Platelet Volume 5.2L, Neutrophils (%) (Auto) 62.2, Lymphocytes (%) (Auto) 28.5, Monocytes (%) (Auto) 6.8, Eosinophils (%) (Auto) 1.8, Basophils (%) (Auto ) 0.7, Sodium Level 138, Potassium Level 4.2, Chloride Level 103, Carbon Dioxide Level 28, Anion Gap 7, Blood Urea Nitrogen 14, Creatinine 1.0, Estimat Glomerular Filtration Rate > 60, Glucose Level 93, Calcium Level 9.2 Current Medications Medications (Trade) Dose Ordered Sig/Eliza Route PRN Reason Start Time Stop Time Status Last Admin Dose Admin Acetaminophen (Tylenol) 650 mg Q4H PRN ORAL fever 06/28/18 23:00 07/28/18 22:59 Albuterol/ Ipratropium (Albuterol/ Ipratropium) 3 ml EVERY 4 HOURS PRN HHN Shortness of Breath 06/28/18 23:00 07/03/18 22:59 Cefepime HCl 2 gm/ Dextrose 110 ml @ 220 mls/hr EVERY 12 HOURS IV 06/29/18 09:00 07/06/18 08:59 07/01/18 08:20 Clindamycin HCl/ Dextrose 50 ml @ 100 mls/hr Q8HR IV 06/29/18 14:00 07/06/18 13:59 07/01/18 13:09 Dextrose (Dextrose 50%) 25 ml STAT PRN IV Hypoglycemia 06/28/18 23:00 07/28/18 22:59 Dextrose (Dextrose 50%) 50 ml Q30M PRN IV Hypoglycemia 06/28/18 23:00 07/28/18 22:59 Heparin Sodium (Porcine) (Heparin 5000 units/ml) 5,000 units EVERY 12 HOURS SUBQ 06/29/18 09:00 07/29/18 08:59 07/01/18 08:21 Morphine Sulfate (Morphine Sulfate) 2 mg EVERY 4 HOURS PRN IVP Moderate Pain (Pain Scale 4-6) 06/28/18 23:00 07/05/18 22:59 Nitroglycerin (Ntg) 0.4 mg Q5M PRN SL Prn Chest Pain 06/28/18 23:00 07/28/18 22:59 Ondansetron HCl (Zofran) 4 mg Q6H PRN IVP Nausea & Vomiting 06/28/18 23:00 07/28/18 22:59 Polyethylene Glycol (Miralax) 17 gm DAILYPRN PRN ORAL Constipation 06/28/18 23:00 07/28/18 22:59 Temazepam (Restoril) 15 mg HSPRN PRN ORAL Insomnia 06/28/18 23:00 07/05/18 22:59 Vancomycin HCl (Vanco rx to dose) 1 ea DAILY PRN MISC . 06/30/18 16:30 07/30/18 16:29 Vancomycin HCl/ Dextrose 275 ml @ 184 mls/hr Q12H IVPB 06/29/18 06:00 07/04/18 05:59 07/01/18 05:43 Jaime Anthony MD Jul 01, 2018 14:57
[2018-07-01 16:06] VITALS: BP 106/66
--- NOTE | 2018-07-01 19:08 | NUR ---
NURSE NOTES: Received patient on bed sleeping, no s/s of any distress, IV line patent and intact, bed in low position and locked, call light within reach, will continue to monitor.
--- NOTE | 2018-07-01 19:08 | NUR ---
HAND-OFF: Report given to STACEY FERRER RN.
[2018-07-01 20:00] VITALS: BP 107/64
[2018-07-01] MEDS ORDERED: NS 275ml ONE (22:25)
[2018-07-02] VITALS: BP 134/63
[2018-07-02 04:00] VITALS: BP 111/67
[2018-07-02] MEDS: Clindamycin 900mg 50 ML IV SCH (05:07)
[2018-07-02] MEDS: Vancomycin 1.5gm Premix 275 ML IVPB SCH (05:41)
--- NOTE | 2018-07-02 07:08 | General Progress Note ---
Assessment/Plan Problem List: (1) Cellulitis of finger of left hand ICD Codes: L03.012 - Cellulitis of left finger SNOMED: [id number] Status: unchanged Assessment/Plan wound care abx pain control cbc bmp in am dc to snf if clear Subjective Constitutional: Reports: weakness Allergies: Coded Allergies: No Known Allergies (Unverified , 06/28/18) All Systems: reviewed and negative except above Subjective calm in bed Objective Last 24 Hour Vital Signs Date Time Temp Pulse Resp B/P (MAP) Pulse Ox O2 Delivery O2 Flow Rate FiO2 07/02/18 04:00 97.9 74 18 111/67 (82) 98 07/02/18 00:00 98.8 75 18 134/63 (86) 97 07/01/18 22:04 64 18 Room Air 21 07/01/18 21:00 Room Air 07/01/18 20:00 97.4 79 18 107/64 (78) 97 07/01/18 16:06 98.1 71 20 106/66 (79) 98 07/01/18 12:00 98.3 79 19 117/86 (96) 98 07/01/18 09:00 97.9 76 19 110/71 (84) 98 07/01/18 08:10 Room Air Intake and Output 07/01/18 07/02/18 19:00 07:00 Intake Total 790 ml 50 ml Output Total 1350 ml Balance -560 ml 50 ml Intake Oral 740 ml IV Total 50 ml 50 ml Output Urine Total 1350 ml # Voids 2 Height (Feet): 5 Height (Inches): 8.00 Weight (Pounds): 177 General Appearance: lethargic EENT: normal ENT inspection Neck: normal alignment Cardiovascular: normal peripheral pulses, normal rate, regular rhythm Respiratory/Chest: chest wall non-tender, lungs clear, normal breath sounds Abdomen: normal bowel sounds, non tender, soft Extremities: normal inspection Edema: no edema noted Arm (L), no edema noted Arm (R), no edema noted Leg (L), no edema noted Leg (R), no edema noted Pedal (L), no edema noted Pedal (R), no edema noted Generalized Neurologic: motor weakness Skin: normal pigmentation, warm/dry Objective left index dressing c&d David Sousa DO Jul 02, 2018 07:08
[2018-07-02 07:24] LABS: EOSINOPHILS % (AUTO) 1.6 % (0.0-3.0); HEMATOCRIT 43.4 % (42.0-52.0); LYMPHOCYTES % (AUTO) 31.5 % (20.0-45.0); MEAN CORPUSCULAR VOLUME 92 FL (80-99); MONOCYTES % (AUTO) 6.8 % (1.0-10.0); NEUTROPHILS % (AUTO) 59.1 % (45.0-75.0); PLATELET COUNT 404 K/UL (150-450); RED BLOOD COUNT 4.74 M/UL (4.70-6.10); RED CELL DISTRIBUTION WIDTH 11.4 % (11.6-14.8); WHITE BLOOD COUNT 8.9 K/UL (4.8-10.8)
[2018-07-02 07:29] LABS: ANION GAP 7 mmol/L (5-15); BLOOD UREA NITROGEN 22 mg/dL (7-18); CALCIUM 9.2 MG/DL (8.5-10.1); CARBON DIOXIDE 30 MMOL/L (21-32); CHLORIDE 102 MMOL/L (98-107); SODIUM 139 MMOL/L (136-145)
--- NOTE | 2018-07-02 07:30 | NUR ---
HAND-OFF: Report given to Sherlyn ALFARO.
[2018-07-02 08:00] VITALS: BP 103/68
--- NOTE | 2018-07-02 08:11 | NUR ---
NURSE NOTES: Pt able to verbalize known needs. Bandage is clean and intact. Pt is ambulatory. Denies any possible side effect related to antibiotic use. Skin has no signs of possible dermatological side effects. Current plan of care will be followed
[2018-07-02] MEDS: Heparin 5000 units/ml inj SUBQ SCH (09:00)
[2018-07-02] MEDS: Cefepime HCl 2 GM in D5W 110 ML IV SCH (09:15)
--- NOTE | 2018-07-02 09:24 | NUR ---
NURSE NOTES: Pt complaining of pain to iv site rt forearm, new iv placed rt upper wrist 22 gauge
[2018-07-02 12:00] VITALS: BP 114/74
--- NOTE | 2018-07-02 14:07 | Infectious Diseases Prog Note ---
Assessment/Plan Assessment/Plan Abx: IV Vancomycin 06/28- Cefepime 06/29- Clindamycin 06/29- Ceftriaxone x1 06/28 Assessment: L index finger cellulitis-? chemical exposure -L hand xray: Normal left hand x-rays. Afebrile Leukocytosis, SP -Bcx NTD Homelessness Plan: -Switch IV vancomycin #5 , Cefepime #4 and Clindamycin #4 to PO Bactrim DS 1 tab bid and Augmentin 875/125mg PO Bid for 9 more days - can be discharged on this regimen -06/28 SP CEftriaxone x1 -f/u cx -Monitor CBC/CMP, temperatures -wound care -sx f/u Thank you for this consultation. Will continue to follow along with you. Discussed with RN. Subjective Allergies: Coded Allergies: No Known Allergies (Unverified , 06/28/18) Subjective afebrile no leukocytosis Bcx NTD discharge planning Objective Vital Signs Last 24 Hour Vital Signs Date Time Temp Pulse Resp B/P (MAP) Pulse Ox O2 Delivery O2 Flow Rate FiO2 07/02/18 08:45 64 18 Room Air 21 07/02/18 04:00 97.9 74 18 111/67 (82) 98 07/02/18 00:00 98.8 75 18 134/63 (86) 97 07/01/18 22:04 64 18 Room Air 21 07/01/18 21:00 Room Air 07/01/18 20:00 97.4 79 18 107/64 (78) 97 07/01/18 16:06 98.1 71 20 106/66 (79) 98 Height (Feet): 5 Height (Inches): 8.00 Weight (Pounds): 177 Objective General appearance: alert, cooperative, no distress, appears stated age Head: Normocephalic, without obvious abnormality, atraumatic Eyes: conjunctivae/corneas clear. PERRL, EOM's intact. Fundi benign Throat: Lips, mucosa, and tongue normal. Teeth and gums normal Neck: supple, symmetrical, trachea midline, no adenopathy, thyroid: not enlarged, symmetric, no tenderness/mass/nodules, no carotid bruit and no JVD Lungs: clear to auscultation bilaterally Heart: regular rate and rhythm, S1, S2 normal, no murmur, click, rub or gallop Abdomen: soft, non-tender. Bowel sounds normal. No masses, no organomegaly Extremities: extremities normal, atraumatic, no cyanosis or edema. left index finger cellulitis. no abscess Pulses: 2+ and symmetric Skin: Skin color, texture, turgor normal. No rashes or lesions Neurologic: Grossly normal Laboratory Tests Test 07/02/18 05:32 White Blood Count 8.9 K/UL (4.8-10.8) Red Blood Count 4.74 M/UL (4.70-6.10) Hemoglobin 15.0 G/DL (14.2-18.0) Hematocrit 43.4 % (42.0-52.0) Mean Corpuscular Volume 92 FL (80-99) Mean Corpuscular Hemoglobin 31.7 PG (27.0-31.0) H Mean Corpuscular Hemoglobin Concent 34.7 G/DL (32.0-36.0) Red Cell Distribution Width 11.4 % (11.6-14.8) L Platelet Count 404 K/UL (150-450) Mean Platelet Volume 5.3 FL (6.5-10.1) L Neutrophils (%) (Auto) 59.1 % (45.0-75.0) Lymphocytes (%) (Auto) 31.5 % (20.0-45.0) Monocytes (%) (Auto) 6.8 % (1.0-10.0) Eosinophils (%) (Auto) 1.6 % (0.0-3.0) Basophils (%) (Auto) 1.0 % (0.0-2.0) Sodium Level 139 MMOL/L (136-145) Potassium Level 4.0 MMOL/L (3.5-5.1) Chloride Level 102 MMOL/L (98-107) Carbon Dioxide Level 30 MMOL/L (21-32) Anion Gap 7 mmol/L (5-15) Blood Urea Nitrogen 22 mg/dL (7-18) H Creatinine 1.0 MG/DL (0.55-1.30) Estimat Glomerular Filtration Rate > 60 mL/min (>60) Glucose Level 91 MG/DL (74-106) Calcium Level 9.2 MG/DL (8.5-10.1) Current Medications Medications (Trade) Dose Ordered Sig/Eliza Route PRN Reason Start Time Stop Time Status Last Admin Dose Admin Acetaminophen (Tylenol) 650 mg Q4H PRN ORAL fever 06/28/18 23:00 07/28/18 22:59 Albuterol/ Ipratropium (Albuterol/ Ipratropium) 3 ml EVERY 4 HOURS PRN HHN Shortness of Breath 06/28/18 23:00 07/03/18 22:59 Cefepime HCl 2 gm/ Dextrose 110 ml @ 220 mls/hr EVERY 12 HOURS IV 06/29/18 09:00 07/06/18 08:59 07/02/18 09:15 Clindamycin HCl/ Dextrose 50 ml @ 100 mls/hr Q8HR IV 06/29/18 14:00 07/06/18 13:59 07/02/18 05:07 Dextrose (Dextrose 50%) 25 ml Q30M PRN IV Hypoglycemia 07/01/18 17:30 07/28/18 22:59 Dextrose (Dextrose 50%) 50 ml Q30M PRN IV Hypoglycemia 06/28/18 23:00 07/28/18 22:59 Heparin Sodium (Porcine) (Heparin 5000 units/ml) 5,000 units EVERY 12 HOURS SUBQ 06/29/18 09:00 07/29/18 08:59 07/01/18 21:08 Morphine Sulfate (Morphine Sulfate) 2 mg EVERY 4 HOURS PRN IVP Moderate Pain (Pain Scale 4-6) 06/28/18 23:00 07/05/18 22:59 07/02/18 09:15 Nitroglycerin (Ntg) 0.4 mg Q5M PRN SL Prn Chest Pain 06/28/18 23:00 07/28/18 22:59 Ondansetron HCl (Zofran) 4 mg Q6H PRN IVP Nausea & Vomiting 06/28/18 23:00 07/28/18 22:59 Polyethylene Glycol (Miralax) 17 gm DAILYPRN PRN ORAL Constipation 06/28/18 23:00 07/28/18 22:59 Temazepam (Restoril) 15 mg HSPRN PRN ORAL Insomnia 06/28/18 23:00 07/05/18 22:59 Vancomycin HCl (Vanco rx to dose) 1 ea DAILY PRN MISC . 06/30/18 16:30 07/30/18 16:29 Vancomycin HCl 1.5 gm/Dextrose 275 ml @ 137.5 mls/ hr Q12HR@0600,1800 IVPB 07/02/18 18:00 07/07/18 17:59 Crystal Yao M.D. Jul 02, 2018 14:07
--- NOTE | 2018-07-02 14:11 | Pulmonology Progress Note ---
Assessment/Plan Problems: (1) Cellulitis of finger of left hand Assessment/Plan improving a lot pt can go home with oral abx, d/w ID sales support consultant, will dc with bactrim and augmentin Subjective ROS Limited/Unobtainable: No Constitutional: Reports: no symptoms HEENT: Repors: no symptoms Allergies: Coded Allergies: No Known Allergies (Unverified , 06/28/18) Objective Last 24 Hour Vital Signs Date Time Temp Pulse Resp B/P (MAP) Pulse Ox O2 Delivery O2 Flow Rate FiO2 07/02/18 08:45 64 18 Room Air 21 07/02/18 04:00 97.9 74 18 111/67 (82) 98 07/02/18 00:00 98.8 75 18 134/63 (86) 97 07/01/18 22:04 64 18 Room Air 21 07/01/18 21:00 Room Air 07/01/18 20:00 97.4 79 18 107/64 (78) 97 07/01/18 16:06 98.1 71 20 106/66 (79) 98 Intake and Output 07/01/18 07/02/18 19:00 07:00 Intake Total 790 ml 50 ml Output Total 1350 ml Balance -560 ml 50 ml Intake Oral 740 ml IV Total 50 ml 50 ml Output Urine Total 1350 ml # Voids 2 Objective General Appearance: no apparent distress - Lines, tubes and drains: peripheral HEENT: normocephalic, atraumatic, anicteric, mucous membranes moist, PERRL Neck: non-tender, supple Respiratory/Chest: chest wall non-tender, lungs clear, no respiratory distress , no accessory muscle use Cardiovascular/Chest: normal peripheral pulses, normal rate, no JVD Abdomen: normal bowel sounds, non tender, soft Extremities: normal range of motion, non-tender, no calf tenderness Skin Exam: warm/dry Neurologic: alert, oriented x 3, responsive Musculoskeletal: normal muscle bulk Laboratory Tests 07/02/18 05:32: White Blood Count 8.9, Red Blood Count 4.74, Hemoglobin 15.0, Hematocrit 43.4, Mean Corpuscular Volume 92, Mean Corpuscular Hemoglobin 31.7H, Mean Corpuscular Hemoglobin Concent 34.7, Red Cell Distribution Width 11.4L, Platelet Count 404, Mean Platelet Volume 5.3L, Neutrophils (%) (Auto) 59.1, Lymphocytes (%) (Auto) 31.5, Monocytes (%) (Auto) 6.8, Eosinophils (%) (Auto) 1.6, Basophils (%) (Auto ) 1.0, Sodium Level 139, Potassium Level 4.0, Chloride Level 102, Carbon Dioxide Level 30, Anion Gap 7, Blood Urea Nitrogen 22H, Creatinine 1.0, Estimat Glomerular Filtration Rate > 60, Glucose Level 91, Calcium Level 9.2 Current Medications Medications (Trade) Dose Ordered Sig/Eliza Route PRN Reason Start Time Stop Time Status Last Admin Dose Admin Acetaminophen (Tylenol) 650 mg Q4H PRN ORAL fever 06/28/18 23:00 07/28/18 22:59 Albuterol/ Ipratropium (Albuterol/ Ipratropium) 3 ml EVERY 4 HOURS PRN HHN Shortness of Breath 06/28/18 23:00 07/03/18 22:59 Amoxicillin/ Clavulanate Potassium (Augmentin) 875 mg EVERY 12 HOURS ORAL 07/02/18 21:00 07/09/18 20:59 Dextrose (Dextrose 50%) 25 ml Q30M PRN IV Hypoglycemia 07/01/18 17:30 07/28/18 22:59 Dextrose (Dextrose 50%) 50 ml Q30M PRN IV Hypoglycemia 06/28/18 23:00 07/28/18 22:59 Heparin Sodium (Porcine) (Heparin 5000 units/ml) 5,000 units EVERY 12 HOURS SUBQ 06/29/18 09:00 07/29/18 08:59 07/01/18 21:08 Morphine Sulfate (Morphine Sulfate) 2 mg EVERY 4 HOURS PRN IVP Moderate Pain (Pain Scale 4-6) 06/28/18 23:00 07/05/18 22:59 07/02/18 09:15 Nitroglycerin (Ntg) 0.4 mg Q5M PRN SL Prn Chest Pain 06/28/18 23:00 07/28/18 22:59 Ondansetron HCl (Zofran) 4 mg Q6H PRN IVP Nausea & Vomiting 06/28/18 23:00 07/28/18 22:59 Polyethylene Glycol (Miralax) 17 gm DAILYPRN PRN ORAL Constipation 06/28/18 23:00 07/28/18 22:59 Temazepam (Restoril) 15 mg HSPRN PRN ORAL Insomnia 06/28/18 23:00 07/05/18 22:59 Trimethoprim/ Sulfamethoxazole (Bactrim-DS) 1 tab Q12HR ORAL 07/02/18 21:00 07/09/18 20:59 Jaime Anthony MD Jul 02, 2018 14:11
--- NOTE | 2018-07-02 14:14 | Surgery Progress Note ---
Surgery Progress Note Subjective Additional Comments improved. pain improved. edema/cellulitis improved. Objective Last 24 Hour Vital Signs Date Time Temp Pulse Resp B/P (MAP) Pulse Ox O2 Delivery O2 Flow Rate FiO2 07/02/18 08:45 64 18 Room Air 21 07/02/18 04:00 97.9 74 18 111/67 (82) 98 07/02/18 00:00 98.8 75 18 134/63 (86) 97 07/01/18 22:04 64 18 Room Air 21 07/01/18 21:00 Room Air 07/01/18 20:00 97.4 79 18 107/64 (78) 97 07/01/18 16:06 98.1 71 20 106/66 (79) 98 I&O Intake and Output 07/01/18 07/02/18 19:00 07:00 Intake Total 790 ml 50 ml Output Total 1350 ml Balance -560 ml 50 ml Intake Oral 740 ml IV Total 50 ml 50 ml Output Urine Total 1350 ml # Voids 2 Dressing: other Wound: other Drains: other Cardiovascular: RSR Respiratory: clear Abdomen: soft, present bowel sounds, non-distended Extremities: edema, no tenderness, no cyanosis Laboratory Tests Test 07/02/18 05:32 White Blood Count 8.9 K/UL (4.8-10.8) Red Blood Count 4.74 M/UL (4.70-6.10) Hemoglobin 15.0 G/DL (14.2-18.0) Hematocrit 43.4 % (42.0-52.0) Mean Corpuscular Volume 92 FL (80-99) Mean Corpuscular Hemoglobin 31.7 PG (27.0-31.0) H Mean Corpuscular Hemoglobin Concent 34.7 G/DL (32.0-36.0) Red Cell Distribution Width 11.4 % (11.6-14.8) L Platelet Count 404 K/UL (150-450) Mean Platelet Volume 5.3 FL (6.5-10.1) L Neutrophils (%) (Auto) 59.1 % (45.0-75.0) Lymphocytes (%) (Auto) 31.5 % (20.0-45.0) Monocytes (%) (Auto) 6.8 % (1.0-10.0) Eosinophils (%) (Auto) 1.6 % (0.0-3.0) Basophils (%) (Auto) 1.0 % (0.0-2.0) Sodium Level 139 MMOL/L (136-145) Potassium Level 4.0 MMOL/L (3.5-5.1) Chloride Level 102 MMOL/L (98-107) Carbon Dioxide Level 30 MMOL/L (21-32) Anion Gap 7 mmol/L (5-15) Blood Urea Nitrogen 22 mg/dL (7-18) H Creatinine 1.0 MG/DL (0.55-1.30) Estimat Glomerular Filtration Rate > 60 mL/min (>60) Glucose Level 91 MG/DL (74-106) Calcium Level 9.2 MG/DL (8.5-10.1) Plan Problems: (1) Cellulitis of finger of left hand Assessment & Plan: cellulitis of left index finger. no abscess noted on exam. tender. skin breakdown healing concerning given duration. fortunately no pyogenic. better passive movement in finger cellulitis improving overall much improved -okay for diet -IV Abx -elevate hand wash hand with water and soap apply xeroform to finger and wrap with kerlix daily okay to shower transition to oral abx d/c planning thank you Vidal Roa Jul 02, 2018 14:14
[2018-07-02] MEDS ORDERED: Tubing IV Secondary IV ONE (15:36)
[2018-07-02] MEDS ORDERED: NS 275ml ONE (15:36)
[2018-07-02] MEDS ORDERED: Vancomycin 1.5 GM in D5W 275 ML IVPB SCH (18:00)
[2018-07-02] MEDS ORDERED: Bactrim-DS 1 tab ORAL SCH (21:00)
[2018-07-02] MEDS ORDERED: Augmentin 875mg Tab ORAL SCH (21:00)
--- NOTE | 2018-07-03 12:04 | Discharge Summary ---
Discharge Summary Discharge Summary _ DATE OF ADMISSION: 06/28/2018 DATE OF DISCHARGE: 07/02/2018 DISCHARGED BY: Dr. David Sousa CONSULTANTS: Dr. Vidal Yao BRIEF HOSPITAL COURSE: Patient is a 58-year-old homeless male, presented to [facility] for evaluation of infection in the left finger for the past 10 days. He denied any acute injury or trauma. He denied fever. Denied chest pain. He reported he may have had a chemical exposure on the finger however "does not remember." On evaluation at ED, vital signs were stable. Patient was afebrile. Blood work showed mildly elevated WBC. CMP was unremarkable. X-ray of the left hand show any acute fracture or dislocation, no subcutaneous gas. Patient was then admitted for evaluation of cellulitis of the left hand. Surgical evaluation was done. Patient had cellulitis of the left index finger. There was no abscess noted on exam. There was skin breakdown that was healing. He was given wound care. He was advised to elevate the hand. ID was consulted. Patient was given IV vancomycin, cefepime and clindamycin. Edema/cellulitis improved. Patient had full range of motion in the finger. Blood culture did not isolate any growth. Leukocytosis resolved. He was ordered discharg to snf, however, insurance was not accepted. fat purification worker was consulted to aid with discharge plans. He was eventually discharged home on p.o. antibiotics. FINAL DIAGNOSES: Cellulitis of the left index finger Homeless DISPOSITION: Patient was discharged home. DISCHARGE MEDICATIONS: Refer to Discharge Medication List. DISCHARGE INSTRUCTIONS: Follow-up in a week. I have been assigned to complete a discharge summary on this account, I was not involved with the patient's management. Layla Horowitz NP Jul 03, 2018 12:03
== END 2018-07-02 15:37 | disposition home or self-care (01) | DRG 383 ==
LOC: EMR 18:29 → 4E 18:34 → EDBEDREQ 20:36 → 4E 06-29 00:11
DX: L03.012 Cellulitis of left finger (principal); E46 Unspecified protein-calorie malnutrition; Z59.0 Homelessness; F17.200 Nicotine dependence, unspecified, uncomplicated; Z68.24 Body mass index [BMI] 24.0-24.9, adult
CPT/HCPCS: 36415; 80048; 80053; 80202; 85025; 87040; 87081; 93970; 94664; 96361; 96365; 96366; 96367; 96372; 99285; S0077

== ENCOUNTER 2018-10-19 18:00 | Emergency (ER) | payer MEDICAID, OTHER ==
[~2018-10-19] VITALS: Ht 175.3 cm; Wt 77.1 kg
[~2018-10-19 18:00] MED LIST: AUGMENTIN 875-1 EAC1 ORAL; BACTRIM DOUBLE S1 E1 ORAL; NKM
--- NOTE | 2018-10-19 18:14 | NUR ---
ED Nurse Note: PT CAME IN DUE TO RIGHT GROIN PAIN. DENIES DIFFICULTY IN URINATION. AAO X4, AMBULATES WITH STEADY GAIT AND VERY TALKATIVE.
--- NOTE | 2018-10-19 18:37 | NUR ---
ED Nurse Note: COLLECTED BLOOD SPECIMEN AND SENT.
[2018-10-19 18:52] LABS: EOSINOPHILS % (AUTO) 1.7 % (0.0-3.0); HEMATOCRIT 37.1 % (42.0-52.0); HEMOGLOBIN 13.4 G/DL (14.2-18.0); LYMPHOCYTES % (AUTO) 25.7 % (20.0-45.0); MEAN CORPUSCULAR VOLUME 87 FL (80-99); MONOCYTES % (AUTO) 5.3 % (1.0-10.0); NEUTROPHILS % (AUTO) 66.4 % (45.0-75.0); PLATELET COUNT 471 K/UL (150-450); RED BLOOD COUNT 4.26 M/UL (4.70-6.10); RED CELL DISTRIBUTION WIDTH 10.9 % (11.6-14.8); WHITE BLOOD COUNT 12.4 K/UL (4.8-10.8)
[2018-10-19 18:57] LABS: APPEARANCE,URINE CLEAR; BILIRUBIN, URINE NEGATIVE (NEGATIVE); COLOR,URINE PALE YELLOW; GLUCOSE, URINE (UA) NEGATIVE (NEGATIVE); KETONES,URINE NEGATIVE (NEGATIVE); LEUKOCYTE ESTERASE ,URINE NEGATIVE (NEGATIVE); NITRITE,URINE NEGATIVE (NEGATIVE); PH,URINE 5 (4.5-8.0); PROTEIN,URINE NEGATIVE (NEGATIVE); UROBILINOGEN,URINE NORMAL MG/DL (0.0-1.0)
--- NOTE | 2018-10-19 18:57 | NUR ---
ED Nurse Note: PT TAKEN TO US.
[2018-10-19 19:02] LABS: ANION GAP 7 mmol/L (5-15); BLOOD UREA NITROGEN 29 mg/dL (7-18); CALCIUM 9.1 MG/DL (8.5-10.1); CARBON DIOXIDE 29 MMOL/L (21-32); CHLORIDE 105 MMOL/L (98-107); CREATININE 0.9 MG/DL (0.55-1.30); POTASSIUM 4.1 MMOL/L (3.5-5.1); SODIUM 141 MMOL/L (136-145)
--- NOTE | 2018-10-19 19:07 | NUR ---
HAND-OFF: Report given to ANURAG ALFARO.
[2018-10-19 19:08] LABS: ALANINE AMINOTRANSFERASE 37 U/L (12-78); ALBUMIN/GLOBULIN RATIO 1.3 (1.0-2.7); ALKALINE PHOSPHATASE 111 U/L (46-116); ASPARTATE AMINO TRANSFERASE 27 U/L (15-37); BILIRUBIN,TOTAL 0.1 MG/DL (0.2-1.0)
--- NOTE | 2018-10-19 19:30 | NUR ---
ED Nurse Note: PT BACK FROM CT. PT IS RESTLESS AND CONTINOUSLY KEEPS GETTING OUT OF ROOM.
--- NOTE | 2018-10-19 19:35 | NUR ---
ED Nurse Note: PT KEEPS REQUESTING TO LEAVE, INFOMRED ERPA-C. ERPA-C AT BEDSIDE SPEAKING TO PT
--- NOTE | 2018-10-19 19:37 | Emergency Room Report ---
History of Present Illness General Chief Complaint: General Complaint Source: Patient Present Illness HPI 58-year-old male with history of right-sided inguinal hernia here complaining of increased pain in the scrotum x1 week. Patient went to [facility] 2 nights ago however his insurance was not accepted there was given Augmentin due to urine infection and elevated white blood count. Patient does not have a primary care provider yet. Patient is able to reduce the hernia and denies change of color of the hernia. Patient is rating the pain 7 out of 10 without radiation denying numbness and tingling. Denies further painful urination hematuria. Patient smokes 4 packs of cigarettes a day denies chest pain, palpitation, shortness of breath, abdominal pain, nausea vomiting. Denies penile discharge. Denies sexual activity. Denies drug use and alcohol intake. Allergies: Coded Allergies: No Known Allergies (Unverified , 06/28/18) Patient History Past Medical History: see triage record Past Surgical History: unable to obtain Pertinent Family History: unable to obtain Social History: Reports: smoking - 4 packs a day of tobacco Immunizations: UTD Reviewed Nursing Documentation: PMH: Agreed; PSxH: Agreed Nursing Documentation-PMH Past Medical History: No History, Except For Hx Cardiac Problems: Yes - [place] Review of Systems All Other Systems: negative except mentioned in HPI Physical Exam Vital Signs Date Time Temp Pulse Resp B/P (MAP) Pulse Ox O2 Delivery O2 Flow Rate FiO2 10/19/18 18:04 97.9 80 17 122/77 (92) 98 Room Air Sp02 EP Interpretation: reviewed, normal General Appearance: normal inspection, well appearing, no apparent distress, alert Head: normocephalic, atraumatic Eyes: bilateral eye normal inspection, bilateral eye PERRL ENT: normal ENT inspection, hearing grossly normal, normal pharynx, no angioedema Neck: normal inspection, full range of motion, supple, thyroid normal Respiratory: normal inspection, chest non-tender, lungs clear, normal breath sounds, no respiratory distress, no wheezing Cardiovascular #1: normal inspection, regular rate, rhythm, no murmur, normal capillary refill Gastrointestinal: normal inspection, non tender, soft Genitourinary: no CVA tenderness, other - Prolapse inguinal hernia right sided scrotum reducible without incarceration Musculoskeletal: normal inspection, back normal, digits/nails normal, gait/ station normal Neurologic: normal inspection, alert, oriented x3, responsive Psychiatric: normal inspection, judgement/insight normal Skin: normal inspection, normal color, no rash Lymphatic: normal inspection, no adenopathy Medical Decision Making PA Attestation All diagnoses and treatment plans were reviewed and discussed with my supervising physician Dr. Mclean Diagnostic Impression: Primary Impression: Reducible inguinal hernia Additional Impression: Elevated WBC count ER Course 58-year-old male with history of right-sided inguinal hernia here complaining of increased pain in the scrotum x1 week. Patient went to [facility] 2 nights ago however his insurance was not accepted there was given Augmentin due to urine infection and elevated white blood count. Patient does not have a primary care provider yet. Patient is able to reduce the hernia and denies change of color of the hernia. Patient is rating the pain 7 out of 10 without radiation denying numbness and tingling. Denies further painful urination hematuria. Patient smokes 4 packs of cigarettes a day denies chest pain, palpitation, shortness of breath, abdominal pain, nausea vomiting. Denies penile discharge. Denies sexual activity. Denies drug use and alcohol intake. Ddx considered but are not limited to: incarcenated inguinal hernia, nonreducible inguinal hernia, reducible inguinal hernia, pyelonephritis, prostatitis, UTI Vital signs: are WNL, pt. is afebrile H&PE are most consistent with: Elevated white blood cell possibly secondary to UTI, reducible inguinal hernia ORDERS: Scrotal ultrasound, CBC, CMP, UA, Cipro ED INTERVENTIONS: Cipro DISCHARGE: At this time pt. is stable for d/c to home. Will provide printed patient care instructions, and any necessary prescriptions. Care plan and follow up instructions have been discussed with the patient prior to discharge. Patient is very impatient to leave and once the helpdesk technician reveals the results decides to leave with the prescription and not wait for the radiologist report patient is aware that he needs to follow-up with general surgery for hernia repair. And also have white blood count checked again WBC 12 CT/MRI/US Diagnostic Results CT/MRI/US Diagnostic Results : Imaging Test Ordered: scrotal US Impression reducable right inguinal hernia Last Vital Signs Date Time Temp Pulse Resp B/P (MAP) Pulse Ox O2 Delivery O2 Flow Rate FiO2 10/19/18 18:13 80 17 Room Air 10/19/18 18:04 97.9 122/77 (98) 62 Disposition: HOME, SELF-CARE Condition: Stable Scripts Ciprofloxacin* (CIPRO*) 500 Mg Tablet 500 MG PO BID for 7 Days, #14 TAB Prov: Mike Donahue 10/19/18 Referrals: Sangeeta BARTONREFERRING (PCP) Patient Instructions: Inguinal Hernia, Adult, [id number], White Blood Cell Count Test Additional Instructions: Follow-up with your primary care provider for referral to general surgery for repair of the hernia at this point your hernia is reducible and has good blood flow. Take medication as directed continue taking your Augmentin. Mike Donahue Oct 19, 2018 19:37
[2018-10-19] MEDS ORDERED: CIPRO500 MG PO (19:40)
[2018-10-19 19:45] VITALS: BP 125/79
[2018-10-19] MEDS ORDERED: Ciprofloxacin 500mg tab ORAL ONE (19:45)
--- NOTE | 2018-10-19 19:45 | NUR ---
ER DISCHARGE NOTE: Patient is cleared to be discharged per ERMD, pt is aox4, on room air, with stable vital signs. pt was given dc and prescription instructions, pt was able to verbalize understanding, pt id band removed. pt is able to ambulate with steady gait. pt took all belongings.
[2018-10-19 19:46] VITALS: BP 125/68
--- NOTE | 2018-10-20 14:28 | Diagnostic Imaging Report ---
Indications: Right groin pain, history of hernia Technique: Grayscale and duplex images of the scrotum Comparison: none Findings:The right testicle measures 4.7cm in length. It demonstrates normal echogenicity. Normal Doppler flow. 5 mm cyst is seen in the right epididymal head. The left testicle measures 4.7 cm in length. It demonstrates normal echogenicity and normal Doppler flow. Normal epididymis. A loop of bowel is seen in the upper right inguinal canal. Impression: Positive for right inguinal hernia. Per technologist, this is known already Essentially scrotal ultrasound otherwise. Negative for evidence of testicular torsion or other acute pathology. Note small epididymal cyst versus spermatocele in the right epididymal head
== END 2018-10-19 19:45 | disposition home or self-care (01) ==
LOC: EMR 18:48
DX: K40.90 Unilateral inguinal hernia, without obstruction or gangrene, not specified as recurrent (principal); D72.829 Elevated white blood cell count, unspecified; I25.2 Old myocardial infarction; F17.200 Nicotine dependence, unspecified, uncomplicated; F17.210 Nicotine dependence, cigarettes, uncomplicated
CPT/HCPCS: 36415; 76870; 80053; 81001; 85025; 99284

== ENCOUNTER 2019-01-20 19:37 | Emergency (ER) | payer OTHER ==
[~2019-01-20] VITALS: Ht 172.7 cm; Wt 74.8 kg
[~2019-01-20 19:37] MED LIST changes: +CIPRO500 MG PO
[2019-01-20 19:45] VITALS: BP 125/80
[2019-01-20] MEDS ORDERED: Cephalexin 500mg cap ORAL ONE (20:00)
--- NOTE | 2019-01-20 20:42 | Emergency Room Report ---
History of Present Illness General Chief Complaint: General Complaint Source: Patient Present Illness HPI 58-year-old homeless patient with unknown past medical history of any significance here complaining of pain in the right index finger for several months treated infection of the finger. Also complains of generalized pain once blood work complaining of ear pain wants to be admitted to the hospital. Patient is homeless and has been here multiple times for several complaints. Patient reports that he has had elevated white blood count in the past fever chills right now. Patient walks into the emergency room wearing a wrist pain from a different hospital. Patient is requesting food and water. Denies chest pain, shortness of breath, palpitation, urinary frequency, pain radiation from flank to the pubic area. No CVA tenderness noted. Allergies: Coded Allergies: No Known Allergies (Unverified , 01/20/19) Patient History Past Medical History: see triage record Past Surgical History: unable to obtain Pertinent Family History: none Social History: Reports: smoking Immunizations: UTD Reviewed Nursing Documentation: PMH: Agreed; PSxH: Agreed Nursing Documentation-PMH Hx Cardiac Problems: Yes - [place] Review of Systems All Other Systems: negative except mentioned in HPI Physical Exam Vital Signs Date Time Temp Pulse Resp B/P (MAP) Pulse Ox O2 Delivery O2 Flow Rate FiO2 01/20/19 19:45 79 18 01/20/19 19:45 98.1 125/80 99 Room Air Sp02 EP Interpretation: reviewed, normal General Appearance: no apparent distress, alert, GCS 15, non-toxic Head: normocephalic, atraumatic Eyes: bilateral eye normal inspection, bilateral eye PERRL ENT: hearing grossly normal, normal pharynx, no angioedema, normal voice Neck: full range of motion, supple/symm/no masses Respiratory: chest non-tender, lungs clear, normal breath sounds, no wheezing, speaking full sentences Cardiovascular #1: regular rate, rhythm, no edema, no murmur, normal capillary refill Cardiovascular #2: 2+ radial (R), 2+ radial (L) Gastrointestinal: normal bowel sounds, non tender, soft, non-distended, no guarding, no rebound Genitourinary: normal inspection, no CVA tenderness Musculoskeletal: back normal, gait/station normal, normal range of motion, non- tender, no calf tenderness, other - Infection right index finger slightly erythematous Neurologic: normal inspection, alert, oriented x3, responsive Psychiatric: judgement/insight normal, memory normal, mood/affect normal, no suicidal/homicidal ideation Skin: no rash Lymphatic: no adenopathy Medical Decision Making PA Attestation Diagnosis and treatment plans were reviewed and discussed with my supervising physician Dr. Alexi Boone Attestation The treating physician has assessed and agrees that patient is medically stable for outpatient disposition Diagnostic Impression: Primary Impression: Finger infection ER Course 58-year-old homeless patient with unknown past medical history of any significance here complaining of pain in the right index finger for several months treated infection of the finger. Also complains of generalized pain once blood work complaining of ear pain wants to be admitted to the hospital. Patient is homeless and has been here multiple times for several complaints. Patient reports that he has had elevated white blood count in the past fever chills right now. Patient walks into the emergency room wearing a wrist pain from a different hospital. Patient is requesting food and water. Denies chest pain, shortness of breath, palpitation, urinary frequency, pain radiation from flank to the pubic area. No CVA tenderness noted. Ddx considered but are not limited to : Cellulitis, paronychia,, superficial infection, abscess Vital signs: are WNL, pt. is afebrile H&PE are most consistent with: Superficial infection of skin ORDERS: UA, Keflex, no imaging is necessary as patient has been having this pain for several months and has not repeated superficial skin infection and reports that his infection started happening 1 day ago. ED INTERVENTIONS: Keflex DISCHARGE: At this time pt. is stable for d/c to home. Will provide printed patient care instructions, and any necessary prescriptions. Care plan and follow up instructions have been discussed with the patient prior to discharge. Patient started screaming wanting to leave demanding to get the prescription. Patient does not wait for his paperwork prescription and walks out of the emergency room. Patient is about to enter my room as he was stopped by our ER alternative energy technician Harry. Patient was escorted out of the emergency room by our security. Stable at time of discharge Last Vital Signs Date Time Temp Pulse Resp B/P (MAP) Pulse Ox O2 Delivery O2 Flow Rate FiO2 01/20/19 19:45 98.1 79 18 125/80 (95) 99 01/20/19 19:45 Room Air Disposition: HOME, SELF-CARE Condition: Stable Scripts Acetaminophen* (TYLENOL EXTRA STRENGTH*) 500 Mg Tablet 500 MG ORAL Q8H PRN for Prn Headache/Temp > 101, #30 TAB 0 Refills Prov: Mike Donahue 01/20/19 Cephalexin* (KEFLEX*) 500 Mg Capsule 500 MG ORAL EVERY 6 HOURS for 7 Days, #28 CAP Prov: Mike Donahue 01/20/19 Referrals: [facility] (PCP) Patient Instructions: Fingertip Infection Mike Donahue Jan 20, 2019 20:42
[2019-01-20] MEDS ORDERED: TYLENOL EXTRA500 MG ORAL (20:43)
[2019-01-20] MEDS ORDERED: CEPHALEXIN500 MG ORAL (20:43)
[2019-01-20 20:44] VITALS: BP 131/84
[2019-01-20 20:45] LABS: APPEARANCE,URINE CLEAR; BILIRUBIN, URINE NEGATIVE (NEGATIVE); GLUCOSE, URINE (UA) NEGATIVE (NEGATIVE); KETONES,URINE NEGATIVE (NEGATIVE); LEUKOCYTE ESTERASE ,URINE NEGATIVE (NEGATIVE); NITRITE,URINE NEGATIVE (NEGATIVE); PH,URINE 6 (4.5-8.0); PROTEIN,URINE NEGATIVE (NEGATIVE); UROBILINOGEN,URINE 1 MG/DL (0.0-1.0)
[2019-01-20 20:57] LABS: COLOR,URINE YELLOW
== END 2019-01-20 20:44 | disposition home or self-care (01) ==
LOC: EMR 20:05
DX: L08.9 Local infection of the skin and subcutaneous tissue, unspecified (principal); M79.644 Pain in right finger(s); I25.2 Old myocardial infarction; F17.200 Nicotine dependence, unspecified, uncomplicated; Z59.0 Homelessness
CPT/HCPCS: 81001; Z7502; 99282

== ENCOUNTER 2019-01-28 14:51 | Emergency (ER) | payer OTHER ==
[~2019-01-28] VITALS: Ht 170.2 cm; Wt 74.4 kg
[~2019-01-28 14:51] MED LIST changes: +CEPHALEXIN500 MG ORAL; +TYLENOL EXTRA500 MG ORAL
--- NOTE | 2019-01-28 15:15 | NUR ---
ED Nurse Note: PT BEING UNCOOPERATIVE AND LAYING ON FLOOR. SECURITY CALLED AND BESIDE PT. PT PLACED IN CHAIR BUT REMAINS AGITATED AND AGGRESSIVE.
--- NOTE | 2019-01-28 15:25 | NUR ---
ED Nurse Note: DR WHITNEY AT BEDSIDE FOR EVALUATION. PT STATES HE WAS BITTEN BY A DOG IN THE RIGHT ARM X 3 DAYS AGO. SWELLING NOTED TO RIGHT FOREARM BUT NO ACTIVE BLEEDING, OPEN WOUNDS OR DRAINAGE NOTED.
[2019-01-28 15:26] VITALS: BP 126/78
[2019-01-28] MEDS ORDERED: RABIES VACCINE 2.5 UNIT IM ONE (15:30)
[2019-01-28] MEDS ORDERED: Piperacillin/Tazobactam 3.375 GM in NS 110 ML IVPB ONE (15:30)
--- NOTE | 2019-01-28 15:42 | Emergency Room Report ---
History of Present Illness General Chief Complaint: Animal Bite Source: Patient Present Illness [facility] Disclaimer: Please note that this report is being documented using DRAG[employer] technology. This can lead to erroneous entry secondary to incorrect interpretation by the dictating instrument. HPI: Is a 58-year-old male with past medical history for hand cellulitis presenting for evaluation of dog bite. Event occurred 3 days ago. The patient states the dog came up to and attacked him causing and punched him in the face when the dog latched onto the right wrist. He is right-hand dominant. Noted pain and swelling. Then noticed a purulent drainage from the puncture site. Now having difficult with flexion at the wrist. He went to [facility] yesterday and waited in the emergency department for some time but states he was never seen in the left prior to being evaluated because the wait was too long. He has multiple wrist bands attached to his wrist and states he has had multiple hospital visits for different skin infections over the past few weeks. He has been prescribed Augmentin, moxifloxacin but is no longer taking either for at least the past 4 days. He did not finish either treatment course. He denies fevers, chills, vomiting, chest pain, shortness of breath. PMH: Recurrent cellulitis, hypertension, hypercholesterolemia noncompliant PSH: Right wrist repair over 40 years ago Allergies: Denies Social Hx: Denies Allergies: Coded Allergies: No Known Allergies (Unverified , 01/20/19) Nursing Documentation-PMH Past Medical History: No History, Except For Hx Cardiac Problems: Yes - [place] Review of Systems All Other Systems: negative except mentioned in HPI Physical Exam Vital Signs Date Time Temp Pulse Resp B/P (MAP) Pulse Ox O2 Delivery O2 Flow Rate FiO2 01/28/19 15:05 97.7 70 18 124/80 (95) 98 Room Air General: Awake and alert, no acute distress HEENT: NC/AT. EOMI. Cardiovascular: RRR. S1 and S2 normal. No murmur appreciated Resp: Normal work of breathing. No cough, wheezing or crackles appreciated Abdomen: Abdomen is soft, nondistended. Nontender Skin: There is a possible healed puncture wound over the radial aspect of the right forearm approximately 5 cm proximally from the wrist. There is also a superficial abrasion what appears to be a scratch that is scabbed over in the same area. There is no purulent drainage, bleeding from either site. There is swelling over the dorsum of the distal forearm with superficial erythema and some tenderness to palpation MSK: Normal tone and bulk. Moving all extremities. Pain with flexion at the right wrist. No difficulty with extension. Able to flex and extend the digits of the right hand without difficulty. No tenderness over the anatomic snuffbox. No tenderness or limitation of range of motion at the elbow or shoulder. Neuro: Awake and alert. Mentating appropriately. Incision is intact in the lower extremities bilaterally Medical Decision Making Diagnostic Impression: Primary Impression: Cellulitis Additional Impression: Bite by animal ER Course 58-year-old male presents for evaluation after a dog bite to the right forearm 3 days ago. Concern for deep space abscess given the purulent drainage from the puncture site. Will start antibiotics, send blood cultures, IV fluids and sent for CT scan of the forearm. Patient will be given rabies vaccine, tetanus booster Laboratory Tests Test 01/28/19 15:50 White Blood Count 8.7 K/UL (4.8-10.8) Red Blood Count 4.29 M/UL (4.70-6.10) L Hemoglobin 13.8 G/DL (14.2-18.0) L Hematocrit 39.4 % (42.0-52.0) L Mean Corpuscular Volume 92 FL (80-99) Mean Corpuscular Hemoglobin 32.2 PG (27.0-31.0) H Mean Corpuscular Hemoglobin Concent 35.0 G/DL (32.0-36.0) Red Cell Distribution Width 10.6 % (11.6-14.8) L Platelet Count 380 K/UL (150-450) Mean Platelet Volume 5.8 FL (6.5-10.1) L Neutrophils (%) (Auto) 62.4 % (45.0-75.0) Lymphocytes (%) (Auto) 26.9 % (20.0-45.0) Monocytes (%) (Auto) 8.2 % (1.0-10.0) Eosinophils (%) (Auto) 1.7 % (0.0-3.0) Basophils (%) (Auto) 0.7 % (0.0-2.0) Erythrocyte Sedimentation Rate 44 MM/HR (0-20) H Prothrombin Time 9.6 SEC (9.30-11.50) Prothrombin Time INR 0.9 (0.9-1.1) PTT 27 SEC (23-33) Sodium Level 140 MMOL/L (136-145) Potassium Level 3.8 MMOL/L (3.5-5.1) Chloride Level 105 MMOL/L (98-107) Carbon Dioxide Level 26 MMOL/L (21-32) Anion Gap 9 mmol/L (5-15) Blood Urea Nitrogen 22 mg/dL (7-18) H Creatinine 0.9 MG/DL (0.55-1.30) Estimate Glomerular Filtration Rate > 60 mL/min (>60) Glucose Level 90 MG/DL (74-106) Lactic Acid Level 1.10 mmol/L (0.4-2.0) Calcium Level 8.7 MG/DL (8.5-10.1) Total Bilirubin 0.3 MG/DL (0.2-1.0) Aspartate Amino Transferase (AST) 26 U/L (15-37) Alanine Aminotransferase (ALT) 35 U/L (12-78) Alkaline Phosphatase 106 U/L (46-116) Total Creatine Kinase 331 U/L (26-308) H C-Reactive Protein, Quantitative < 0.4 mg/dL (0.00-0.90) Total Protein 7.3 G/DL (6.4-8.2) Albumin 3.5 G/DL (3.4-5.0) Globulin 3.8 g/dL Albumin/Globulin Ratio 0.9 (1.0-2.7) L Last Vital Signs Date Time Temp Pulse Resp B/P (MAP) Pulse Ox O2 Delivery O2 Flow Rate FiO2 01/28/19 15:26 97.9 74 16 126/78 100 Room Air Reevaluation Impression CT imaging did not show any evidence of abscess, foreign body or soft tissue gas but did show nonspecific edema in the subcutaneous fat consistent. This is consistent with cellulitis. There is no significant white counts, no shift, ESR slightly elevated at 44 but CRP is negative. Labs otherwise within normal limits. Patient was treated with Unasyn while in the emergency department and received a tetanus booster as well as a rabies vaccine. Rabies IVIG is not available in our emergency department. I recommended admission for IV antibiotics however the patient states that he would like to try outpatient course of antibiotics and would return to the emergency department tomorrow if his symptoms did not significantly improve. He understands signs of progressive infection and when to return to the emergency department. He states that he would stay in the emergency department today however he has family obligations that he must attend to personally and that he would return tomorrow for admission unless he had significant improvement in his symptoms. He is overall well-appearing and while he is complaining of difficulty with flexion at the wrist he is able to flex the wrist and has good range of motion in that wrist. He was discharged with Augmentin and strict return precautions. Disposition: HOME, SELF-CARE Condition: Stable Scripts Amoxicillin/Potassium Clav 875-125* (AUGMENTIN 875-125 TABLET*) 1 Each Tablet 1 TAB ORAL TWICE A DAY for 10 Days, #20 TAB Prov: Dereje Canales MD 01/28/19 Referrals: [facility] (PCP) Dereje Canales MD Jan 28, 2019 15:42
[2019-01-28 16:15] LABS: BASOPHILS % (AUTO) 0.7 % (0.0-2.0); EOSINOPHILS % (AUTO) 1.7 % (0.0-3.0); HEMATOCRIT 39.4 % (42.0-52.0); HEMOGLOBIN 13.8 G/DL (14.2-18.0); LYMPHOCYTES % (AUTO) 26.9 % (20.0-45.0); MEAN CORPUSCULAR VOLUME 92 FL (80-99); MONOCYTES % (AUTO) 8.2 % (1.0-10.0); NEUTROPHILS % (AUTO) 62.4 % (45.0-75.0); PLATELET COUNT 380 K/UL (150-450); RED BLOOD COUNT 4.29 M/UL (4.70-6.10); RED CELL DISTRIBUTION WIDTH 10.6 % (11.6-14.8); WHITE BLOOD COUNT 8.7 K/UL (4.8-10.8)
[2019-01-28 16:23] LABS: INR 0.9 (0.9-1.1)
[2019-01-28 16:36] LABS: ANION GAP 9 mmol/L (5-15); BLOOD UREA NITROGEN 22 mg/dL (7-18); CALCIUM 8.7 MG/DL (8.5-10.1); CARBON DIOXIDE 26 MMOL/L (21-32); CHLORIDE 105 MMOL/L (98-107); CREATININE 0.9 MG/DL (0.55-1.30); POTASSIUM 3.8 MMOL/L (3.5-5.1); SODIUM 140 MMOL/L (136-145)
[2019-01-28 16:41] LABS: ALANINE AMINOTRANSFERASE 35 U/L (12-78); ALBUMIN 3.5 G/DL (3.4-5.0); ALBUMIN/GLOBULIN RATIO 0.9 (1.0-2.7); ALKALINE PHOSPHATASE 106 U/L (46-116); ASPARTATE AMINO TRANSFERASE 26 U/L (15-37); BILIRUBIN,TOTAL 0.3 MG/DL (0.2-1.0); CREATINE KINASE 331 U/L (26-308)
--- NOTE | 2019-01-28 18:14 | Diagnostic Imaging Report ---
Indication: Right wrist swelling and pain status post dog bite Technique: IV administration nonionic contrast. Spiral acquisitions obtained through the right forearm and wrist Multiplanar reconstructions were generated. Total dose length product 302 mGycm. CTDIvol(s) 8 mGy. Radiation dose was minimized using automated exposure control Comparison: none Findings: There is no evidence of radiopaque foreign body. No focal rim-enhancing fluid collections. There is slight edema of the subcutaneous fat circumferentially. No definite evidence of vascular injury. No soft tissue gas. No evidence of acute bony injury. Impression: Minimal nonspecific edema of the subcutaneous fat Negative for evidence of abscess, foreign body, or soft tissue gas The CT scanner at [facility] is accredited by the [employer] and the scans are performed using protocols designed to limit radiation exposure to as low as reasonably achievable to attain images of sufficient resolution adequate for diagnostic evaluation.
--- NOTE | 2019-01-28 18:33 | NUR ---
ED Nurse Note: PT SITTING PEACEFULLY IN BED IN NAD. AOX4. PRESCRIPTIONS AND DISCHARGE PAPERWORK EXPLAINED TO PT. PT VERBALIZES UNDERSTANDING AND ALL QUESTIONS ANSWERED. PRESCRIPTION AND DISCHARGE PAPERWORK GIVEN TO PT, IV AND ID WRISTBAND REMOVED. PT WALKED OUT OF ER WITH STEADY GAIT AND ALL BELONGINGS ACCOMPANIED BY FRIEND.
[2019-01-28 18:34] VITALS: BP 124/76
[2019-01-28] MEDS ORDERED: AUGMENTIN 875-1 EAC1 ORAL (18:36)
[2019-01-28] MEDS ORDERED: Tetanus/Diptheria/Pertussis IM ONE ×2 (18:41→18:45)
== END 2019-01-28 18:56 | disposition home or self-care (01) ==
LOC: EMR 15:23
DX: S51.851A Open bite of right forearm, initial encounter (principal); L03.113 Cellulitis of right upper limb; Z23 Encounter for immunization; I25.2 Old myocardial infarction; I10 Essential (primary) hypertension; E78.00 Pure hypercholesterolemia, unspecified; W54.0XXA Bitten by dog, initial encounter; Y92.9 Unspecified place or not applicable
CPT/HCPCS: 36415; 73201; 80053; 82550; 83605; 85025; 85610; 85651; 85730; 86140; 87040; 90375; 90471; 90715; 96365; G0009; J2543; Z7502; 99284

== ENCOUNTER 2019-02-01 09:58 | Emergency (ER) | payer OTHER ==
[~2019-02-01] VITALS: Ht 172.7 cm; Wt 75.3 kg
[2019-02-01 10:07] VITALS: BP 127/81
--- NOTE | 2019-02-01 10:53 | Emergency Room Report ---
History of Present Illness General Chief Complaint: Wound Recheck/Suture Removal Present Illness HPI Disclaimer: Please note that this report is being documented using [employer] technology. This can lead to erroneous entry secondary to incorrect interpretation by the dictating instrument. HPI: 58-year-old male well-known to the emergency department presents for evaluation of wound check. He was in the emergency department few days ago stating that he was bitten on the forearm by a dog. He was given rabies vaccine , tetanus vaccine, blood cultures and antibiotics. The patient elected to leave and pursue treatment as an outpatient with oral antibiotics and presents today for evaluation of the wound and complaining of dysuria and flank pain. Symptoms began yesterday. He notes a dull ache of the left side of the back that does not radiate into the groin. He does note some pain with urination but denies any hematuria. Denies any penile discharge. Denies any change in the wound itself. States there was a little pustule over the initial puncture wound which has been there since the bite occurred which is not significantly changed though he is sometimes able to express some fluid from it. States the erythema around the wrist remains. No changes in his range of motion or strength. Denies fevers, chills. PMH: Recurrent cellulitis, hypertension, hypercholesterolemia, medication noncompliant PSH: Right wrist tendon repair decades ago Allergies: Denies Social Hx: Occasional tobacco use Allergies: Coded Allergies: No Known Allergies (Unverified , 01/20/19) Nursing Documentation-PMH Hx Cardiac Problems: Yes - [place] Review of Systems All Other Systems: negative except mentioned in HPI Physical Exam Vital Signs Date Time Temp Pulse Resp B/P (MAP) Pulse Ox O2 Delivery O2 Flow Rate FiO2 02/01/19 10:07 97.9 69 18 127/81 (96) 98 Room Air General: Awake and alert, no acute distress HEENT: NC/AT. EOMI. Cardiovascular: RRR. S1 and S2 normal. No murmur appreciated Resp: Normal work of breathing. No cough, wheezing or crackles appreciated Abdomen: Abdomen is soft, nondistended. Nontender Skin: No open wounds, the puncture wound over the right wrist is healing appropriately. No purulence, no bleeding, no superficial skin breakdown. There is mild erythema but no warmth, no significant tenderness. MSK: Normal tone and bulk. Moving all extremities. No obvious deformity. Range of motion in the right upper extremity is largely preserved. Some difficulty with flexion at the wrist though appears improved from last time. Otherwise able to extend and flex all digits, able to flex the wrist, full range of motion of the elbow and shoulder. Neuro: Awake and alert. Mentating appropriately. Back/Spine: Mild left-sided flank pain on percussion of the CVA Medical Decision Making Diagnostic Impression: Primary Impression: Encounter for wound re-check Additional Impression: Dysuria ER Course This a 58-year-old male with recent history of dog bite to the right forearm presenting for evaluation of wound recheck and complaining of 1 day dysuria and left-sided flank pain. He is overall well-appearing with stable vital signs. He is well-known to the emergency department and has been noncompliant with medication in the past however he states he has been compliant with his antibiotics that was started to few days ago. He has received rabies and tetanus vaccinations at the last visit. His wounds do not appear acutely infected and in fact show some improvement over the past few days. Blood cultures have not shown any growth to date after 4 days. His range of motion is improved as well. Will obtain a urinalysis to evaluate his dysuria. The patient is pacing around the emergency department frequently asking to leave and come back at a later date which he typically does. He is homeless but states he has a place to stay tonight. Laboratory Tests Test 02/01/19 10:32 Urine Color Yellow Urine Appearance Clear Urine pH 5 (4.5-8.0) Urine Specific [place] 1.025 (1.005-1.035) Urine Protein Negative (NEGATIVE) Urine Glucose (UA) Negative (NEGATIVE) Urine Ketones Negative (NEGATIVE) Urine Blood Negative (NEGATIVE) Urine Nitrite Negative (NEGATIVE) Urine Bilirubin Negative (NEGATIVE) Urine Urobilinogen Normal MG/DL (0.0-1.0) Urine Leukocyte Esterase Negative (NEGATIVE) Last Vital Signs Date Time Temp Pulse Resp B/P (MAP) Pulse Ox O2 Delivery O2 Flow Rate FiO2 02/01/19 10:07 97.9 69 18 127/81 (96) 98 Room Air Reevaluation Impression Urine does not appear acutely infected. The patient is relieved by less and is requesting discharge from the emergency department. I strongly counseled him on continue his antibiotics for his reported dog bite. He agrees with this treatment plan will be discharged home. Also again included the names of the orthopedic surgery center that he should follow-up with. He states he will follow-up tomorrow as they were closed over the weekend. He understands and agrees reasons to return to the emergency department. Will be discharged. Disposition: HOME, SELF-CARE Condition: Stable Referrals: [facility] (PCP) Dereje Canales MD Feb 01, 2019 10:53
--- NOTE | 2019-02-01 11:05 | NUR ---
ED Nurse Note: UA SENT TO LAB
[2019-02-01 11:14] LABS: APPEARANCE,URINE CLEAR; BILIRUBIN, URINE NEGATIVE (NEGATIVE); GLUCOSE, URINE (UA) NEGATIVE (NEGATIVE); KETONES,URINE NEGATIVE (NEGATIVE); LEUKOCYTE ESTERASE ,URINE NEGATIVE (NEGATIVE); NITRITE,URINE NEGATIVE (NEGATIVE); PH,URINE 5 (4.5-8.0); PROTEIN,URINE NEGATIVE (NEGATIVE); UROBILINOGEN,URINE NORMAL MG/DL (0.0-1.0)
--- NOTE | 2019-02-01 11:15 | NUR ---
ED Nurse Note: Patient brought himself into ED by walking c/o left flank pain, back pain which he reports it has been there for 'a while' and frequent urination. patient was seen in [facility] ED in 01/28/19 for animal bite. patient is alert awake x4 ambulatory without assistance, breathing unlabored and even, speaking in full sentences. patient is drinking his coffee that he brought in from outside.
[2019-02-01 11:29] LABS: COLOR,URINE YELLOW
[2019-02-01 11:40] VITALS: BP 127/81
--- NOTE | 2019-02-01 11:40 | NUR ---
ER DISCHARGE NOTE: Patient is cleared to be discharged per ERMD, pt is aox4, on room air, with stable vital signs. pt was given dc and prescription instructions, pt was able to verbalize understanding, pt id band removed without complications. pt is able to ambulate with steady gait. pt took all belongings.
--- NOTE | 2019-02-01 11:40 | NUR ---
Note lillie in EDM - 02/01/19 at 1154 by OSIRIS ER DISCHARGE NOTE: Patient is cleared to be discharged per ERMLucy NAYLOR, pt is aox4, on room air, with stable vital signs. pt was given dc instructions, pt was able to verbalize understanding, pt id band and iv site removed without complications. pt is able to ambulate with steady gait. pt took all belongings.
== END 2019-02-01 11:40 | disposition home or self-care (01) ==
LOC: EMR 10:10
DX: S51.851D Open bite of right forearm, subsequent encounter (principal); R30.0 Dysuria; I25.2 Old myocardial infarction; I10 Essential (primary) hypertension; E78.00 Pure hypercholesterolemia, unspecified; Z91.19 Patient's noncompliance with other medical treatment and regimen; W54.0XXD Bitten by dog, subsequent encounter
CPT/HCPCS: 81003; Z7502; 99282

== ENCOUNTER 2019-02-20 10:21 | Emergency (ER) | payer OTHER ==
[~2019-02-20] VITALS: Ht 172.7 cm; Wt 68.0 kg
[2019-02-20 10:30] VITALS: BP 124/77
--- NOTE | 2019-02-20 10:35 | NUR ---
ED Nurse Note: Patient walked into ED c/o head injury, states that an object hit his head yesterday 02/19/19, presents with dried up blood on his anterior head, patient also has a lower extremity injury that he sustained 2 days prior to arrival, patients great toe on his right foot is deformed with a nail protruding out. complains of 10/10 pain.
--- NOTE | 2019-02-20 11:10 | NUR ---
ED Nurse Note: Patient states that he is refusing care, states that he only wants to talk to a doctor only due to staff not being qualified enough to ask him questions
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
[2019-02-20] MEDS ORDERED: Acetaminophen 500mg (ES) tab PO ONE (11:15)
[2019-02-20] MEDS ORDERED: Neosporin Oint Ud Pkt TOPIC ONE (11:15)
[2019-02-20] MEDS ORDERED: Cephalexin 500mg cap ORAL ONE (11:15)
[2019-02-20 12:12] VITALS: BP 124/77
[2019-02-20] MEDS ORDERED: BACITRACIN15 GM TOPIC (12:12)
[2019-02-20] MEDS ORDERED: CEPHALEXIN500 MG ORAL (12:12)
[2019-02-20] MEDS ORDERED: TYLENOL325 MG ORAL (12:12)
--- NOTE | 2019-02-20 12:22 | NUR ---
AMA: SEE AMA FORM.
[2019-02-21] MEDS ORDERED: BACITRACIN15 GM TOPIC (15:38)
[2019-02-21] MEDS ORDERED: CEPHALEXIN500 MG ORAL (15:38)
[2019-02-21] MEDS ORDERED: TYLENOL325 MG ORAL (15:38)
== END 2019-02-20 12:22 | disposition home or self-care (01) ==
LOC: EMR 12:03
DX: S09.90XA Unspecified injury of head, initial encounter (principal); L03.115 Cellulitis of right lower limb; S97.81XA Crushing injury of right foot, initial encounter; I25.2 Old myocardial infarction; F17.200 Nicotine dependence, unspecified, uncomplicated; F19.10 Other psychoactive substance abuse, uncomplicated; Y08.89XA Assault by other specified means, initial encounter; Y92.410 Unspecified street and highway as the place of occurrence of the external cause
CPT/HCPCS: 73620; Z7502; 99281

== ENCOUNTER 2019-02-21 14:32 | Emergency (ER) | payer OTHER ==
[~2019-02-21] VITALS: Ht 175.3 cm; Wt 77.1 kg
[~2019-02-21 14:32] MED LIST changes: +BACITRACIN15 GM TOPIC; +TYLENOL325 MG ORAL
[2019-02-21 14:45] VITALS: BP 139/82
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
--- NOTE | 2019-02-21 15:15 | NUR ---
ED Nurse Note: pt refused Rt great toe bacitracin and dressing. ERMD made aware.
[2019-02-21] MEDS ORDERED: Bacitracin Oint UD TOPIC ONE (15:30)
[2019-02-21] MEDS ORDERED: CEPHALEXIN500 MG ORAL (15:38)
[2019-02-21] MEDS ORDERED: TYLENOL325 MG ORAL (15:38)
[2019-02-21] MEDS ORDERED: BACITRACIN15 GM TOPIC (15:38)
[2019-02-21 15:45] VITALS: BP 126/79
--- NOTE | 2019-02-21 15:45 | NUR ---
ED Nurse Note: Pt cleared by health care Provider for discharge. DC instructions/prescription was given and explained to pt and verbalized understanding of teachings. All medical deviecs such as ID band removed. Pt is AAO x4, ambulatory and left with all personal belongings. pt denied being homeless. pt refused to state the address and stated "I am not a homeless!"
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
== END 2019-02-21 15:45 | disposition home or self-care (01) ==
LOC: EMR 15:40
DX: L03.115 Cellulitis of right lower limb (principal); I25.2 Old myocardial infarction
CPT/HCPCS: 99282

== ENCOUNTER 2019-02-24 09:40 | Emergency (ER) | payer OTHER ==
[~2019-02-24] VITALS: Ht 172.7 cm; Wt 74.4 kg
[2019-02-24 10:03] VITALS: BP 126/77
--- NOTE | 2019-02-24 10:05 | NUR ---
ED Nurse Note:pt. came again with same wound pain on right big toe, ambulatory, A/Ox4 ,VSS, seen by ER
[2019-02-24] MEDS ORDERED: NAPROXEN250 MG ORAL (10:16)
[2019-02-24] MEDS ORDERED: BACTRIM DS TAB1 EAC1 ORAL (10:16)
--- NOTE | 2019-02-24 10:16 | Emergency Room Report ---
History of Present Illness General Chief Complaint: Pain Source: Patient Present Illness HPI 58-year-old male presents with right toe pain, patient states that he has been taking Keflex for about 1 day, no fevers no chills, patient wants to make sure is not broken requesting x-ray, he endorses some mild ache worsened with movement alleviated with rest severity is mild, patient presents for evaluation Allergies: Coded Allergies: No Known Allergies (Unverified , 01/20/19) Patient History Past Medical History: see triage record Reviewed Nursing Documentation: PMH: Agreed; PSxH: Agreed Nursing Documentation-PMH Past Medical History: No History, Except For Hx Cardiac Problems: Yes - [place] Review of Systems All Other Systems: negative except mentioned in HPI Physical Exam Vital Signs Date Time Temp Pulse Resp B/P (MAP) Pulse Ox O2 Delivery O2 Flow Rate FiO2 02/24/19 09:47 98.4 72 16 126/77 (93) 98 Room Air General Appearance: well appearing, no apparent distress Head: normocephalic, atraumatic ENT: hearing grossly normal, normal voice Neck: full range of motion, supple Respiratory: no respiratory distress, speaking full sentences Musculoskeletal: other - Right great toe: Mild erythema no pus or drainage, fires EHL Neurologic: alert, normal gait Psychiatric: mood/affect normal Skin: no rash Medical Decision Making Diagnostic Impression: Primary Impression: Cellulitis of right foot ER Course Patient with cellulitis of the right great toe, patient on day 2 of his Keflex, low suspicion for failure of outpatient treatment, patient is requesting a sandwich and an x-ray XR negative. Counseled patient he needs to continue abx, will add bactrim for double coverage Dispo home w/ return precautions Other X-Ray Diagnostic Results Other X-Ray Diagnostic Results : X-Ray ordered: XR foot # of Views/Limited Vs Complete: 3 View Indication: Pain EP Interpretation: Yes Interpretation: no fractures Impression: No acute disease Electronically Signed by: Gualberto Truong MD Last Vital Signs Date Time Temp Pulse Resp B/P (MAP) Pulse Ox O2 Delivery O2 Flow Rate FiO2 02/24/19 10:03 98.4 85 16 126/77 98 Room Air Disposition: HOME, SELF-CARE Condition: Stable Scripts Naproxen* (NAPROSYN*) 250 Mg Tablet 250 MG ORAL BID PRN for For Pain, #20 TAB 0 Refills Prov: Gualberto Truong MD 02/24/19 Trimethoprim/Sulfamethoxazole 160/800* (BACTRIM DS TABLET*) 1 Each Tablet 1 TAB ORAL Q12H, #20 TAB 0 Refills Prov: Gualberto Truong MD 02/24/19 Referrals: [facility] Patient Instructions: Cellulitis, [id number] Additional Instructions: The patient was provided with discharge instructions, notified to follow-up with a primary care doctor and or specialist in the next 24-48 hours, and to return to the ED if they have worsening of their symptoms. Please note that this report is being documented using DRAGON technology. This can lead to erroneous entry secondary to incorrect interpretation by the dictating instrument. Gualberto Truong MD Feb 24, 2019 10:16
[2019-02-24] MEDS ORDERED: Neosporin Oint Ud Pkt TOPIC ONE ×2 (10:36→10:45)
[2019-02-24 11:02] VITALS: BP 126/77
--- NOTE | 2019-02-24 11:05 | NUR ---
ER DISCHARGE NOTE:cratchies were provided Patient is cleared to be discharged per ERMD, pt is aox4, on room air, with stable vital signs. pt was given dc , prescription and homeless waiver instructions, pt was able to verbalize understanding, pt is able to ambulate with steady gait. pt took all belongings.
--- NOTE | 2019-02-24 12:29 | Diagnostic Imaging Report ---
Indication: Right foot pain Technique: 3 views right foot Comparison: none Findings: Metallic foreign body projected at the great toe probably the skin surface. Other small punctate foreign bodies also appear to be superficial. No acute fractures. No dislocations. Joint spaces are preserved. There is very mild hammertoe deformity of second through fifth digits. Otherwise normal bony alignment. There is a small plantar spur Impression: No acute process
== END 2019-02-24 11:09 | disposition home or self-care (01) ==
LOC: EMR 10:10
DX: L03.031 Cellulitis of right toe (principal); I25.2 Old myocardial infarction
CPT/HCPCS: 73630; Z7502; 99283

== ENCOUNTER 2019-02-26 01:23 | Emergency (ER) | payer OTHER ==
[~2019-02-26] VITALS: Ht 162.6 cm; Wt 74.8 kg
[~2019-02-26 01:23] MED LIST changes: +BACTRIM DS TAB1 EAC1 ORAL; +NAPROXEN250 MG ORAL
--- NOTE | 2019-02-26 01:50 | NUR ---
ED Nurse Note: Recieved pt in room, pt yelling and soouting at all staff, using profanity towads everyone, pt has small scar on right great toe and telling MD to cut it open, MD at [facility] and explaining it does not need to be cut, pt became very angry, fell on floor and telling staff not to touch him, scraeaming very foul profanity at everyone, pt being escorted out by security, pt left without d/c instructions.
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
[2019-02-26 01:54] VITALS: BP 128/75
== END 2019-02-26 01:55 | disposition home or self-care (01) ==
LOC: EMR 01:38
DX: L03.032 Cellulitis of left toe (principal); I25.2 Old myocardial infarction
CPT/HCPCS: 99281

== ENCOUNTER 2019-03-01 06:16 | Emergency (ER) | payer OTHER ==
[~2019-03-01] VITALS: Ht 160 cm; Wt 61.2 kg
--- NOTE | 2019-03-01 06:35 | NUR ---
ED Nurse Note: Patient walked in to ER c/o wounds on his right toe. Pt is combative and uncooperative.
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
--- NOTE | 2019-03-01 06:36 | NUR ---
ED Nurse Note: Pt wounds bilateral elbow and right big toe.
--- NOTE | 2019-03-01 06:40 | NUR ---
ED Nurse Note: Pt with .
[2019-03-01] MEDS ORDERED: Bacitracin Oint UD TOPIC ONE (06:45)
--- NOTE | 2019-03-01 07:04 | NUR ---
ED Nurse Note: Pt wounds cleaned and bandaged.
[2019-03-01 07:26] VITALS: BP 136/85
--- NOTE | 2019-03-01 07:27 | NUR ---
ED Nurse Note: Pt cleared by health care Provider for discharge. DC instructions/prescription was given and explained to pt and verbalized understanding of teachings. All medical deviecs such as ID band removed. Pt is AAO x4, ambulatory and left with all personal belongings. Patient denied he is homeless as stating "I have insurance card how can I be homeless you fucking idiot!" patient assisted to go outside by security. patient was using inappropriate words towards securities.
== END 2019-03-01 07:29 | disposition home or self-care (01) ==
LOC: EMR 06:57
DX: S50.312A Abrasion of left elbow, initial encounter (principal); S50.311A Abrasion of right elbow, initial encounter; S30.811A Abrasion of abdominal wall, initial encounter; S90.411A Abrasion, right great toe, initial encounter; Y04.8XXA Assault by other bodily force, initial encounter; Y92.9 Unspecified place or not applicable; I25.2 Old myocardial infarction
CPT/HCPCS: 99282

== ENCOUNTER 2019-04-17 13:32 | Emergency (ER) | payer OTHER ==
[~2019-04-17] VITALS: Ht 170.2 cm; Wt 71.7 kg
[2019-04-17] MEDS ORDERED: NKM (13:40)
[2019-04-17] MEDS ORDERED: CEPHALEXIN500 M1 ORAL (13:54)
--- NOTE | 2019-04-17 14:29 | Emergency Room Report ---
History of Present Illness General Chief Complaint: Skin Rash/Abscess Source: Patient Present Illness HPI 59-year-old male complaining of rash on right wrist. Patient refusing to answer questions, demanding antibiotics. Allergies: Coded Allergies: No Known Allergies (Unverified , 01/20/19) Patient History Past Medical History: see triage record Past Surgical History: unable to obtain Social History: Reports: smoking Nursing Documentation-PMH Past Medical History: No History, Except For Hx Cardiac Problems: Yes - [place] Review of Systems All Other Systems: negative except mentioned in HPI Physical Exam Vital Signs Date Time Temp Pulse Resp B/P (MAP) Pulse Ox O2 Delivery O2 Flow Rate FiO2 04/17/19 13:34 99.0 79 16 115/72 (86) 98 Room Air Sp02 EP Interpretation: reviewed, normal Psychiatric: other - patient yelling Skin: other - Erythematous papular rash on the right wrist. Medical Decision Making PA Attestation This patient was seen under the direct supervision of Dr. Prado, who directed all aspects of care and diagnostic interpretation. Diagnostic Impression: Primary Impression: Rash and other nonspecific skin eruption ER Course 59-year-old male complaining of rash on the right wrist. Patient refusing to answer questions and refuse physical exam. Patient yelling in the hallway, demanding prescription for antibiotics. Security called. Dr. Prado performed medical screening screening exam, no emergent condition identified. Patient given prescription for Keflex. Follow-up with primary care provider in 2 to 3 days or return to ER if worsening symptoms, new symptoms or sudden change in condition. Last Vital Signs Date Time Temp Pulse Resp B/P (MAP) Pulse Ox O2 Delivery O2 Flow Rate FiO2 04/17/19 13:34 99.0 79 16 115/72 (86) 98 Room Air Disposition: HOME, SELF-CARE Condition: Stable Scripts Cephalexin* (KEFLEX*) 500 Mg Tablet 500 MG ORAL EVERY 8 HOURS for 7 Days, #21 CAP Prov: Denia Zaragoza 04/17/19 [facility]P) Patient Instructions: Denia Cortes Apr 17, 2019 14:29
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
[2019-04-17 14:36] VITALS: BP 115/72
[2019-04-17 14:39] VITALS: BP 115/72
--- NOTE | 2019-04-17 14:41 | NUR ---
ED Nurse Note: Pt cleared by health care Provider for discharge. DC instructions/prescription was given and explained to pt and verbalized refusal of papers and teachings. All medical deviecs such as ID band removed. Pt is AAO x4, ambulatory and left with all personal belongings.
== END 2019-04-17 14:42 | disposition home or self-care (01) ==
LOC: EMR 14:00
DX: R21 Rash and other nonspecific skin eruption (principal); I25.2 Old myocardial infarction
CPT/HCPCS: 99282

== ENCOUNTER 2019-04-20 20:10 | Emergency (ER) | payer OTHER ==
[~2019-04-20] VITALS: Ht 165.1 cm; Wt 63.5 kg
[~2019-04-20 20:10] MED LIST changes: +CEPHALEXIN500 M1 ORAL
[2019-04-20 20:19] VITALS: BP 120/80
[2019-04-20] MEDS ORDERED: AUGMENTIN 875-1 EAC1 ORAL (20:23)
[2019-04-20] MEDS ORDERED: TYLENOL325 MG ORAL (20:23)
[2019-04-20 20:29] VITALS: BP 132/69
[2019-04-20] MEDS ORDERED: Augmentin 875mg Tab ORAL ONE (20:30)
[2019-04-20] MEDS ORDERED: Acetaminophen 500mg (ES) tab ORAL ONE (20:30)
--- NOTE | 2019-04-20 21:17 | Emergency Room Report ---
History of Present Illness General Chief Complaint: Pain Source: Patient Present Illness HPI Patient presents with complaints of erythema to the right forearm Bilateral inguinal hernias denies any chest pain or shortness of breath denies any back or flank pain patient reports that he was seen recently was given antibiotics however Lost a prescription Denies any chest pain or shortness of breath denies any back or flank pain Allergies: Coded Allergies: No Known Allergies (Unverified , 01/20/19) Patient History Past Medical History: see triage record Reviewed Nursing Documentation: PMH: Agreed; PSxH: Agreed Nursing Documentation-PMH Hx Cardiac Problems: Yes - [place] Review of Systems All Other Systems: negative except mentioned in HPI Physical Exam Vital Signs Date Time Temp Pulse Resp B/P (MAP) Pulse Ox O2 Delivery O2 Flow Rate FiO2 04/20/19 20:12 97.9 80 16 125/79 (94) 98 Room Air Sp02 EP Interpretation: reviewed, normal General Appearance: well appearing, no apparent distress Head: normocephalic, atraumatic Eyes: bilateral eye PERRL, bilateral eye EOMI ENT: EOM grossly intact Neck: supple Respiratory: lungs clear, no respiratory distress, no retraction Cardiovascular #1: regular rate, rhythm Gastrointestinal: non tender, other - Left-sided inguinal hernia which is soft and easily reducible Genitourinary: no CVA tenderness Musculoskeletal: normal inspection Neurologic: alert, oriented x3 Psychiatric: normal inspection Skin: other - Small area of erythema on the right forearm suspicious for early cellulitis, no obvious dermatomal spread no fluctuance Lymphatic: no adenopathy Medical Decision Making Diagnostic Impression: Primary Impression: Cellulitis ER Course Patient's exam appears to be consistent with cellulitis patient reports that he did lose his Prescription recently and this was replaced patient was also given medication here and is stable for close outpatient follow-up Last Vital Signs Date Time Temp Pulse Resp B/P (MAP) Pulse Ox O2 Delivery O2 Flow Rate FiO2 04/20/19 20:29 98.0 83 19 132/69 98 Room Air Status: improved Disposition: HOME, SELF-CARE Condition: Improved Scripts Acetaminophen (Tylenol) 325 Mg Tablet 650 MG ORAL Q12HR PRN for Prn Pain/Headache/Temp > 101 for 7 Days, #15 TAB 0 Refills Prov: Nela Hernandez DO 04/20/19 Amoxicillin/Potassium Clav 875-125* (AUGMENTIN 875-125 TABLET*) 1 Each Tablet 1 TAB ORAL TWICE A DAY, #14 TAB Prov: Nela Hernandez DO 04/20/19 Referrals: [facility] Sangeeta Medley. [facility] Patient Instructions: Cellulitis, [id number] Additional Instructions: Patient is provided with the discharge instructions notified to follow up with primary doctor in the next 2-3 days otherwise return to the er with any worsening symptoms. Please note that this report is being documented using [employer] technology. This can lead to erroneous entry secondary to incorrect interpretation by the dictating instrument. Nela Hernandez DO Apr 20, 2019 21:17
== END 2019-04-20 20:30 | disposition home or self-care (01) ==
LOC: EMR 20:27
DX: L03.113 Cellulitis of right upper limb (principal); I25.2 Old myocardial infarction
CPT/HCPCS: 99282

== ENCOUNTER 2019-04-21 09:39 | Emergency (ER) | payer OTHER ==
[~2019-04-21] VITALS: Ht 172.7 cm; Wt 68.0 kg
[2019-04-21 09:59] VITALS: BP 126/75
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
[2019-04-21 10:35] VITALS: BP 131/82
== END 2019-04-21 10:35 | disposition home or self-care (01) ==
LOC: EMR 09:56
DX: L03.113 Cellulitis of right upper limb (principal); I25.2 Old myocardial infarction
CPT/HCPCS: 99282

== ENCOUNTER 2019-04-25 18:25 | Emergency (ER) | payer OTHER ==
[~2019-04-25] VITALS: Ht 170.2 cm; Wt 68.0 kg
[2019-04-25 18:37] VITALS: BP 131/82
--- NOTE | 2019-04-25 19:14 | NUR ---
ED Nurse Note: PT WALKED IN DUE TO MEDICATION REFILL OF TYLENOL AND ANTIBIOTICS. DENIES ANY PAIN. AAO X4 AND AMBULATORY.
[2019-04-25] MEDS ORDERED: TYLENOL325 MG ORAL (19:25)
[2019-04-25] MEDS ORDERED: AUGMENTIN 875-1 EAC1 ORAL (19:25)
[2019-04-25 19:29] VITALS: BP 128/76
--- NOTE | 2019-04-26 14:24 | Emergency Room Report ---
History of Present Illness General Chief Complaint: Medication Refill Source: Medical Record Present Illness HPI Patient is a 59-year-old male presents for medication refill. Patient reports having prior history of cellulitis. He had recently been prescribed Augmentin. He states that he had lost the prescription. He denies any other complaints at this time. He denies any other recent trauma. He states he is hungry and wants a sandwich. He denies any other current complaints. Allergies: Coded Allergies: No Known Allergies (Unverified , 01/20/19) Patient History Past Medical History: see triage record Reviewed Nursing Documentation: PMH: Agreed; PSxH: Agreed Nursing Documentation-PMH Past Medical History: No History, Except For Hx Cardiac Problems: Yes Review of Systems All Other Systems: negative except mentioned in HPI Physical Exam Vital Signs Date Time Temp Pulse Resp B/P (MAP) Pulse Ox O2 Delivery O2 Flow Rate FiO2 04/25/19 18:37 97.0 79 19 131/82 (98) 99 Room Air General Appearance: well appearing, no apparent distress, alert, GCS 15 Head: normocephalic, atraumatic ENT: hearing grossly normal, normal voice Neck: full range of motion, supple Respiratory: lungs clear, no respiratory distress, speaking full sentences Cardiovascular #1: normal inspection Gastrointestinal: normal inspection Musculoskeletal: no calf tenderness Neurologic: alert, motor strength/tone normal, osteopathic resident III-XII nml as tested, oriented x3, normal gait Psychiatric: judgement/insight normal, mood/affect normal Skin: other - Slight erythema to the wound to the leg. Medical Decision Making Diagnostic Impression: Primary Impression: Cellulitis ER Course Patient presented for medication refill. Differential diagnosis include was not limited to cellulitis, abscess, among others. Patient does not show any evidence of sepsis at this time.patient appears to have a mild cellulitis. Patient was given prescription for Augmentin as well as for acetaminophen. Patient appears to be stable for outpatient management. This medical record is generated with [employer] sheet metal duct installer helper software. There may be some sheet metal duct installer helper discrepancies related to use of this software Last Vital Signs Date Time Temp Pulse Resp B/P (MAP) Pulse Ox O2 Delivery O2 Flow Rate FiO2 04/25/19 19:29 98.0 84 15 128/76 100 Room Air Status: improved Disposition: HOME, SELF-CARE Condition: Improved Scripts Acetaminophen (Tylenol) 325 Mg Tablet 650 MG ORAL Q12HR PRN for Prn Pain/Headache/Temp > 101 for 7 Days, #15 TAB 0 Refills Prov: Deion Ramirez MD 04/25/19 Amoxicillin/Potassium Clav 875-125* (AUGMENTIN 875-125 TABLET*) 1 Each Tablet 1 TAB ORAL TWICE A DAY, #14 TAB Prov: Deion Ramirez MD 04/25/19 Referrals: [facility]ERR[facility] (PCP) Patient Instructions: Medicine Refill at the Emergency Department Deion Ramirez MD Apr 26, 2019 14:24
== END 2019-04-25 19:30 | disposition home or self-care (01) ==
LOC: EMR 19:30
DX: L03.90 Cellulitis, unspecified (principal); Z76.0 Encounter for issue of repeat prescription
CPT/HCPCS: 99282

== ENCOUNTER 2019-05-01 09:55 | Emergency (ER) | payer OTHER ==
[~2019-05-01] VITALS: Ht 175.3 cm; Wt 71.7 kg
[2019-05-01 10:10] VITALS: BP 119/81
[2019-05-01 10:49] VITALS: BP 129/89
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
== END 2019-05-01 10:45 | disposition home or self-care (01) ==
LOC: EMR 10:23
DX: Z09 Encounter for follow-up examination after completed treatment for conditions other than malignant neoplasm (principal); L03.119 Cellulitis of unspecified part of limb
CPT/HCPCS: 99281

== ENCOUNTER 2019-05-12 03:54 | Emergency (ER) | payer OTHER ==
[~2019-05-12] VITALS: Ht 170.2 cm; Wt 86.2 kg
[2019-05-12 03:55] VITALS: BP 140/83
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
[2019-05-12] MEDS ORDERED: IBUPROFEN600 MG ORAL (06:18)
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
[2019-05-12 07:00] VITALS: BP 147/77
== END 2019-05-12 07:00 | disposition home or self-care (01) ==
LOC: EDUNIT# 03:54 → EDBD 03:54 → EMR 04:05
DX: S01.01XA Laceration without foreign body of scalp, initial encounter (principal); S09.90XA Unspecified injury of head, initial encounter; Y04.2XXA Assault by strike against or bumped into by another person, initial encounter; Y92.9 Unspecified place or not applicable
CPT/HCPCS: 12053; 70450; Z7502; 99284